=== PATIENT | male | born 1955 | race Caucasian/White ===

== ENCOUNTER → 2020-03-01 12:57 | Outpatient (CLI) | payer OTHER, SELFPAY ==
[2020-03-01 13:03] LABS: Microscopic, Urine URINE MICROSCOPIC (MICROSCOPIC)
[2020-03-01 13:37] LABS: Basophils % 0.3 % (0.1-2.0); Eosinophils # 0.2 K/mm3 (0.0-0.4); Hemoglobin 15.2 g/dL (14.1-18.0); Lymphocytes # 1.8 K/mm3 (0.7-4.5); Lymphocytes % 24.5 % (10-50); Mean Corpuscular HGB Conc 33.7 g/dL (31.8-35.4); Mean Corpuscular Hemoglobin 31.9 pg (27.0-31.2); Mean Corpuscular Volume 94.4 fl (80-94); Mean Platelet Volume 8.3 fl (7.4-10.4); Monocytes # 0.4 K/mm3 (0.1-1.0); Monocytes % 5.7 % (1.7-9.3); Neutrophils # 4.8 K/mm3 (1.8-7.8); Neutrophils % 66.5 % (37.0-80.0); Platelet Count 181 K/mm3 (142-424); Red Blood Count 4.76 M/mm3 (4.60-6.20); White Blood Count 7.3 K/mm3 (4.8-10.8)
[2020-03-01 13:43] LABS: Appearance,Urine CLEAR (Clear); Bilirubin,Urine Negative (Negative); Blood, Urine Negative (Negative); Color,Urine YELLOW (Yellow); Glucose,Urine (UA) Negative (Negative); Ketones,Urine Negative (Negative); Leukocyte Esterase,Urine Negative (Negative); Nitrate,Urine Negative (Negative); Protein,Urine Negative (Negative); Specific Gravity, Urine 1.015 (1.005-1.030); Urobilinogen,Urine 0.2 EU/dl (0.2)
[2020-03-01 13:58] LABS: Creatinine,Urine Random 81 mg/dL (Not Estab.)
[2020-03-01 14:34] LABS: Squamous Epithelial Cell,Urine Occasional #/hpf (0-5)
[2020-03-01 14:40] LABS: Albumin Level 3.9 g/dl (3.5-5.0); Anion Gap 13.5 mEq/L (5-15); Blood Urea Nitrogen 17 mg/dl (9-20); Calcium 9.1 mg/dl (8.4-10.2); Carbon Dioxide 26 mmol/L (22.0-30.0); Chloride 104 mmol/L (98-107); Estimated Glomerular Filt Rate 41 ml/min (>60); GFR (African American) 50 ML/MIN (>60); Glucose 105 mg/dl (74-100); Phosphorous 3.2 mg/dl (2.5-4.5); Potassium 4.5 mmoL/L (3.5-5.1); Sodium 139 mmol/L (136-145)
[2020-03-01 14:52] LABS: Intact Parathyroid Hormone 113.7 pg/mL (7.5-53.5)
[2020-03-01 14:57] LABS: 25-OH Vitamin D, Total 32.6 ng/mL (30-100)
== END ==
PROVIDERS: Visit Provider Internal Medicine Nephrology
DX: N18.3 Chronic kidney disease, stage 3 (moderate) (principal)
CPT/HCPCS: 36415; 80069; 81001; 82306; 82570; 83970; 84155; 85025

== ENCOUNTER → 2020-03-10 12:14 | Outpatient (POV) | payer OTHER, SELFPAY | PROVIDERS: Visit Provider Internal Medicine Nephrology | DX: Z00.00 Encounter for general adult medical examination without abnormal findings (principal) ==

== ENCOUNTER → 2020-03-14 07:35 | Outpatient (CLI) | payer OTHER, SELFPAY ==
[2020-03-14 15:00] LABS: Alanine Aminotransferase 31 U/L (12-78); Albumin Level 3.7 g/dl (3.5-5.0); Alkaline Phosphatase 94 U/L (38-126); Aspartate Amino Transferase 28 U/L (17-59); Bilirubin,Direct 0.1 mg/dl (0.0-0.4); Bilirubin,Indirect 0.4 mg/dL (0.0-0.9); Bilirubin,Total 0.5 mg/dl (0.2-1.3); Bilirubin,Unconjugated 0.4 mg/dL (0.0-1.1); Chol/HDL Ratio 3.1 (1-3.5); Cholesterol 107 mg/dl (140-200); HDL Cholesterol 35 mg/dl (40-60); Total Protein,Serum 6.1 g/dl (6.3-8.2); Triglycerides 86 mg/dl (30-150); VLDL Cholesterol 17 mg/dL (0-40)
[2020-03-14 15:10] LABS: NT Pro Brain Natriuretic Pep. 48.2 pg/mL (0-125)
[2020-03-14 15:11] LABS: Direct LDL Cholesterol 69.05 mg/dL (100-129)
[2020-03-14 15:31] LABS: Prostate Specific Ag Screen 1.4 ng/ml (0.0-4.0); Thyroid Stimulating Hormone 2.38 uIU/mL (0.465-4.68)
[2020-03-14 18:54] LABS: Creatinine,Urine Random 159 mg/dL (Not Estab.)
[2020-03-14 19:21] LABS: Microalbumin < 6.000 mg/L (0-16.7)
== END ==
PROVIDERS: Visit Provider Family Medicine
DX: R06.02 Shortness of breath (principal); I10 Essential (primary) hypertension; E78.2 Mixed hyperlipidemia; Z12.5 Encounter for screening for malignant neoplasm of prostate
CPT/HCPCS: 36415; 80061; 80076; 82043; 82570; 83880; 84443; G0103

== ENCOUNTER → 2020-03-30 09:40 | Outpatient (CLI) | payer OTHER, SELFPAY | PROVIDERS: PCP Family Medicine; Visit Provider Internal Medicine Nephrology | DX: N18.31 Chronic kidney disease, stage 3a (principal) ==

== ENCOUNTER → 2020-04-02 10:44 | Outpatient (CLI) | payer OTHER, SELFPAY ==
--- NOTE | 2020-04-02 10:49 | US_ITS ---
PROCEDURE: US KIDNEY CLINICAL INDICATION: CHRONIC KIDNEY DISEASE STAGE 3 COMPARISON: No exams were available for comparison FINDINGS: The right kidney is 10 x 5 x 5 cm. Left kidney is 11 x 5 x 6 cm. There is mild cortical thinning of the kidneys. No hydronephrosis evident. A 4 cm cyst is present along the superior pole of the right kidney. Mild splenomegaly at 14 cm. IMPRESSION: Mild bilateral renal cortical thinning with a 4 cm right renal cyst. Dictated by: Suman Rodriges MD 04/02/2020 18:12 Suman Rodriges MD in [place] 04/02/2020 18:12
== END ==
PROVIDERS: PCP Family Medicine; Visit Provider Internal Medicine Nephrology
DX: N18.30 Chronic kidney disease, stage 3 unspecified (principal)
CPT/HCPCS: 76770

== ENCOUNTER → 2020-04-04 17:01 | Outpatient (CLI) | payer OTHER, SELFPAY | PROVIDERS: PCP Family Medicine; Visit Provider Family Medicine | DX: G47.33 Obstructive sleep apnea (adult) (pediatric) (principal) | CPT/HCPCS: G0399 ==

== ENCOUNTER → 2020-11-18 10:13 | Outpatient (POV) | payer OTHER, SELFPAY | PROVIDERS: Visit Provider Dermatology | DX: Z00.00 Encounter for general adult medical examination without abnormal findings (principal) ==

== ENCOUNTER → 2021-02-28 09:06 | Outpatient (CLI) | payer OTHER, SELFPAY ==
[2021-02-28 09:37] LABS: Basophils % 0.4 % (0.1-2.0); Eosinophils # 0.2 K/mm3 (0.0-0.4); Eosinophils % 3.7 % (0.1-12.0); Hematocrit 48.5 % (42.0-52.0); Hemoglobin 15.9 g/dL (14.1-18.0); Lymphocytes % 33.5 % (10-50); Mean Corpuscular HGB Conc 32.8 g/dL (31.8-35.4); Mean Corpuscular Hemoglobin 31.6 pg (27.0-31.2); Mean Corpuscular Volume 96.3 fl (80-94); Mean Platelet Volume 7.9 fl (7.4-10.4); Monocytes # 0.5 K/mm3 (0.1-1.0); Monocytes % 9.1 % (1.7-9.3); Neutrophils # 3.2 K/mm3 (1.8-7.8); Neutrophils % 53.2 % (37.0-80.0); Platelet Count 185 K/mm3 (142-424); Red Blood Count 5.04 M/mm3 (4.60-6.20)
[2021-02-28 09:52] LABS: Hemoglobin A1C 5.8 % (4.0-6.0)
[2021-02-28 10:40] LABS: Alanine Aminotransferase 35 U/L (12-78); Albumin Level 3.9 g/dl (3.5-5.0); Albumin/Globulin Ratio 1.6 (1.1-1.8); Alkaline Phosphatase 88 U/L (38-126); Anion Gap 12.8 mEq/L (5-15); Aspartate Amino Transferase 35 U/L (17-59); Bilirubin,Total 0.5 mg/dl (0.2-1.3); Blood Urea Nitrogen 17 mg/dl (9-20); Calcium 9.1 mg/dl (8.4-10.2); Carbon Dioxide 28 mmol/L (22.0-30.0); Chloride 105 mmol/L (98-107); Chol/HDL Ratio 3.2 (1-3.5); Cholesterol 110 mg/dl (140-200); Estimated Glomerular Filt Rate 34 ml/min (>60); GFR (African American) 41 ML/MIN (>60); Globulin 2.4 g/dL (1.3-3.2); Glucose 94 mg/dl (74-100); HDL Cholesterol 34 mg/dl (40-60); Potassium 4.8 mmoL/L (3.5-5.1); Sodium 141 mmol/L (136-145); Total Protein,Serum 6.3 g/dl (6.3-8.2); Triglycerides 88 mg/dl (30-150); VLDL Cholesterol 18 mg/dL (0-40)
[2021-02-28 10:59] LABS: Creatinine,Urine Random 161 mg/dL (Not Estab.)
[2021-02-28 11:02] LABS: Microalbumin/Creatinine Ratio 8.1
[2021-02-28 11:11] LABS: Prostate Specific Ag Screen 1.8 ng/ml (0.0-4.0); Thyroid Stimulating Hormone 1.38 uIU/mL (0.465-4.68)
== END ==
PROVIDERS: Visit Provider Family Medicine
DX: I10 Essential (primary) hypertension (principal); E78.2 Mixed hyperlipidemia; R73.01 Impaired fasting glucose; N18.30 Chronic kidney disease, stage 3 unspecified; Z12.5 Encounter for screening for malignant neoplasm of prostate
CPT/HCPCS: 36415; 80053; 80061; 82043; 82570; 83036; 84443; 85025; G0103

== ENCOUNTER → 2021-03-28 07:55 | Outpatient (CLI) | payer OTHER, SELFPAY ==
[2021-03-28 08:39] LABS: Creatinine,Urine Random 64 mg/dL (Not Estab.)
[2021-03-28 09:10] LABS: Microalbumin/Creatinine Ratio 28.1
[2021-03-28 10:12] LABS: Blood Urea Nitrogen 16 mg/dl (9-20); Carbon Dioxide 28 mmol/L (22.0-30.0); Chloride 106 mmol/L (98-107); Estimated Glomerular Filt Rate 44 ml/min (>60); GFR (African American) 53 ML/MIN (>60); Phosphorous 2.9 mg/dl (2.5-4.5); Sodium 139 mmol/L (136-145)
[2021-03-28 10:39] LABS: Anion Gap 9.8 mEq/L (5-15); Potassium 4.8 mmoL/L (3.5-5.1)
[2021-03-28 10:42] LABS: Calcium 9.3 mg/dl (8.4-10.2); Glucose 94 mg/dl (74-100)
[2021-03-28 11:14] LABS: 25-OH Vitamin D, Total 32.9 ng/mL (30-100)
[2021-03-28 11:18] LABS: Intact Parathyroid Hormone 60.3 pg/mL (7.5-53.5)
[2021-03-30 15:22] LABS: Calcium, Ionized 5.2 mg/dL (4.5-5.6)
== END ==
PROVIDERS: Visit Provider Internal Medicine Nephrology
DX: N18.30 Chronic kidney disease, stage 3 unspecified (principal)
CPT/HCPCS: 36415; 80069; 82043; 82306; 82330; 82570; 83970

== ENCOUNTER → 2021-04-06 12:35 | Outpatient (POV) | payer OTHER, SELFPAY | PROVIDERS: Visit Provider Internal Medicine Nephrology | DX: Z00.00 Encounter for general adult medical examination without abnormal findings (principal) ==

== ENCOUNTER 2022-04-23 06:25 | Day surgery (SDC) | payer MEDICARE, OTHER, SELFPAY ==
[2022-04-20 17:28] VITALS: BMI 30.7
[2022-04-23] VITALS (8 sets, daily range): BP systolic 127–158; BP diastolic 71–94; PULSE 63–89; RESP 16–18; TEMP 36.1–36.4; O2SAT 91–97
--- NOTE | 2022-04-23 07:09 | P.PN_ITS ---
[facility] Medical History Family history of diabetes mellitus (DM) History of BPH History of chronic kidney disease History of gastroesophageal reflux (GERD) History of hyperlipidemia History of hypertension History of kidney stones Surgical History History of colonoscopy History of extraction of renal calculus History of hernia repair History of tonsillectomy Social History Smoking Status: Former smoker alcohol intake: never substance use type: denies use current occupational status: employed and retired Travel in the last 8 weeks: None household members: spouse housing: house [facility] Anesthesia Checklist Patient Identification Patient Identification: Arm Band and Verbal (Name & ) Structural Data Admitted From: Home Planned Operative Procedure/s: Colonoscopy Consent for Planned Operative Procedure(s) Verified: Yes NPO Status Verified Time NPO: 00:00 Airway Assessment C-Spine Mobility Assessed: Yes TMJ Mobility Assessed: Yes Dentition: Poor Dentition Neurological Assessment Level of Consciousness: Awake Hx Seizures: No Numbness or tingling in extremities: No Anesthesia Plan Anesthesia Risk discussed: Yes Anesthesia Plan: Verified ASA Class: III Anesthesia Type: MAC
--- NOTE | 2022-04-23 08:15 | P.PCN_ITS ---
Procedure: Date: 04/23/22 Patient Date of :: 1955 Procedure Performed:: Total colonoscopy to terminal ileum with polypectomy using biopsy forceps and snare Indications:: Patient is a 66-year-old male referred by Dr. Hernandez for colonoscopy due to history of polyps. He had a colonoscopy in [address] Joseph Bradley which revealed a single tubular adenoma. Dr. Galdamez performed colonoscopy 2016 which revealed a couple of tubular adenomas. He does have a vague family history of colon cancer he believes. Performing Provider:: Iftikhar Brock MD Referring Provider:: Prabhjot Hernandez MD Sedation:: MAC sedation Procedure:: Patient history was obtained and appropriate physical examination was performed. Patient's medications and allergies were reviewed. Informed consent was obtained after explaining the benefits, alternatives, and risks of the procedure including, but not limited to, bleeding, perforation, missed lesions, and adverse reaction to anesthesia medications. Patient was transported to endoscopy procedure room. Patient was connected to monitoring devices. Throughout the procedure the patient's blood pressure, pulse, and oxygen saturations were monitored continuously. Patient i dentification and planned procedure were verified by the staff. Patient was positioned in lateral decubitus position. Digital anorectal exam was performed. Variable stiffness Olympus colonoscope was inserted and advanced under direct visualization to the cecum. Adequacy of the colonic preparation was noted. The colonoscope was advanced a short distance into the terminal ileum. The colonoscope was then slowly withdrawn while carefully examining the color, texture, anatomy, and integrity of the mucosoa circumferentially. Within the rectum retroflexion was performed. Colonoscope was then withdrawn. Findings:: Patient had a good colonic preparation and good visualization was achieved with irrigation and suctioning. In the ascending colon there was a moderate approximately 8 mm adenomatous appearing polyp removed with cold snare. In the distal ascending colon just proximal to the hepatic flexure there was a small diminutive adenomatous appearing polyp removed with cold snare. In the sigmoid colon there was a possible early diminutive polyp as a subtle lesion removed with cold biopsy. Retroflexion within the rectum revealed a couple of anorectal lesions consistent with internal anal papillae which were removed with hot snare. IMPRESSION: Polyps as noted above Probable internal anal papillae removed with hot snare Recommendations:: Follow-up colonoscopy pending pathology. Likely 3 to 5 years Complications:: None immediately apparent Estimated blood obtained (mL): 1
== END 2022-04-23 09:05 | disposition home or self-care (01) ==
PROVIDERS: PCP Family Medicine; Visit Provider Surgery
PROC: 0DJD8ZZ Inspection of Lower Intestinal Tract, Via Natural or Artificial Opening Endoscopic (ICD-10-PCS; principal; 2022-04-23 07:30)
DX: Z12.11 Encounter for screening for malignant neoplasm of colon (principal); K63.5 Polyp of colon; Z86.010 Personal history of colon polyps; Z79.899 Other long term (current) drug therapy
CPT/HCPCS: 45380; 45385; 88305; J2704

== ENCOUNTER → 2022-05-05 08:15 | Outpatient (CLI) | payer MEDICARE, OTHER, SELFPAY ==
[2022-05-05 08:29] LABS: Microscopic, Urine URINE MICROSCOPIC (MICROSCOPIC)
[2022-05-05 09:04] LABS: Basophils # 0.1 K/mm3 (0-0.2); Basophils % 0.9 % (0.1-2.0); Eosinophils # 0.3 K/mm3 (0.0-0.4); Eosinophils % 4.2 % (0.1-12.0); Hematocrit 51.3 % (42.0-52.0); Hemoglobin 16.9 g/dL (14.1-18.0); Lymphocytes # 2.1 K/mm3 (0.7-4.5); Lymphocytes % 30.3 % (10-50); Mean Corpuscular Hemoglobin 31.1 pg (27.0-31.2); Mean Corpuscular Volume 94.2 fl (80-94); Mean Platelet Volume 8.2 fl (7.4-10.4); Monocytes # 0.5 K/mm3 (0.1-1.0); Monocytes % 6.9 % (1.7-9.3); Neutrophils % 57.6 % (37.0-80.0); Platelet Count 226 K/mm3 (142-424); Red Blood Count 5.44 M/mm3 (4.60-6.20); Red Cell Distribution Width 15.1 % (11.5-17.5)
[2022-05-05 09:05] LABS: Appearance,Urine CLEAR (Clear); Bilirubin,Urine Negative (Negative); Blood, Urine Negative (Negative); Color,Urine YELLOW (Yellow); Glucose,Urine (UA) 2+ (Negative); Ketones,Urine Negative (Negative); Leukocyte Esterase,Urine Negative (Negative); Nitrate,Urine Negative (Negative); Protein,Urine Negative (Negative); Specific Gravity, Urine 1.025 (1.005-1.030); Urobilinogen,Urine 0.2 EU/dl (0.2)
[2022-05-05 09:41] LABS: Creatinine,Urine Random 153 mg/dL (Not Estab.)
[2022-05-05 09:43] LABS: Anion Gap 15.7 mEq/L (5-15); Blood Urea Nitrogen 14 mg/dl (9-20); Calcium 9.4 mg/dl (8.4-10.2); Carbon Dioxide 27 mmol/L (22.0-30.0); Chloride 102 mmol/L (98-107); Estimated Glomerular Filt Rate 41 ml/min (>60); GFR (African American) 49 ML/MIN (>60); Glucose 93 mg/dl (74-100); Phosphorous 3.3 mg/dl (2.5-4.5); Potassium 4.7 mmoL/L (3.5-5.1); Sodium 140 mmol/L (136-145)
[2022-05-05 09:45] LABS: Microalbumin/Creatinine Ratio 9.7
[2022-05-05 09:58] LABS: 25-OH Vitamin D, Total 34.8 ng/mL (30-100)
== END ==
PROVIDERS: PCP Family Medicine; Visit Provider Internal Medicine Nephrology
DX: N18.32 Chronic kidney disease, stage 3b (principal); E55.9 Vitamin D deficiency, unspecified
CPT/HCPCS: 36415; 80069; 81001; 82043; 82306; 82570; 85025

== ENCOUNTER → 2022-05-10 09:47 | Outpatient (POV) | payer MEDICARE, OTHER, SELFPAY | PROVIDERS: Visit Provider Internal Medicine Nephrology | DX: Z00.00 Encounter for general adult medical examination without abnormal findings (principal) ==

== ENCOUNTER 2022-12-05 09:29 | Emergency (ER) | payer MEDICARE, OTHER, SELFPAY ==
[2022-12-05] VITALS (8 sets, daily range): BP systolic 129–146; BP diastolic 76–89; PULSE 65–81; RESP 18; TEMP 36.5–36.6; O2SAT 92–96; BMI 29.9
--- NOTE | 2022-12-05 09:35 | PC.NURSE ---
ED MD AT BEDSIDE
--- NOTE | 2022-12-05 09:38 | CT_ITS ---
PROCEDURE INFORMATION: Exam: CT Abdomen And Pelvis With Contrast Exam date and time: 12/05/2022 11:08 AM Age: 66 years old Clinical indication: Abdominal pain; Generalized; Additional info: Llq pain TECHNIQUE: Imaging protocol: Computed tomography of the abdomen and pelvis with contrast. Radiation optimization: All CT scans at this facility use at least one of these dose optimization techniques: automated exposure control; mA and/or kV adjustment per patient size (includes targeted exams where dose is matched to clinical indication); or iterative reconstruction. Contrast material: ISOVUE; Contrast volume: 75 ml; Contrast route: IV; REPORTING DATA: Count of CT and Cardiac NM exams in prior 12 months: This patient has received 0 known CTs and 0 known cardiac nuclear medicine studies in the 12 months prior to the current study. COMPARISON: US KIDNEY 04/02/2020 11:18 AM FINDINGS: Liver: Diffuse fatty liver infiltration. Gallbladder and bile ducts: Normal. No calcified stones. No ductal dilation. Pancreas: Normal. No ductal dilation. Spleen: Normal. No splenomegaly. Adrenal glands: Normal. No mass. Kidneys and ureters: 3.0 cm right renal cortical exophytic cyst. 0.3 cm left ureterovesicular junction calculus with proximal hydroureter. Tiny bilateral nonobstructive renal calculi. Stomach and bowel: Colonic diverticula without pericolonic fat stranding. Appendix: No evidence of appendicitis. Intraperitoneal space: Unremarkable. No free air. No significant fluid collection. Vasculature: Atherosclerotic calcification of aortoiliac arteries. Lymph nodes: Unremarkable. No enlarged lymph nodes. Urinary bladder: Unremarkable as visualized. Reproductive: Unremarkable as visualized. Bones/joints: Unremarkable. No acute fracture. Soft tissues: Unremarkable. IMPRESSION: 1. Left ureterovesicular junction calculus with proximal hydroureter. Nonobstructive renal calculi. 2. Mild hepatomegaly with fatty liver infiltration. 3. Colonic diverticulosis. COMMENTS: Consistent with the [employer]'s Incidental Findings Committee white paper (J Am No Radiol 2018): Any incidental renal lesion less than 1 cm or classified as too small to characterize, or any incidental cystic renal lesion characterized as simple-appearing, is likely benign. No follow-up imaging is recommended for these lesions per consensus recommendations based on imaging criteria.
--- NOTE | 2022-12-05 09:39 | HMH.EDGENADL ---
Discharge Plan Disposition Patient Disposition: Home, Self-Care Condition: Fair Prescriptions Prescriptions: New ibuprofen [IBU] 600 mg tablet 600 mg PO Q8H PRN (Reason: pain) Qty: 30 0RF ondansetron 4 mg tablet,disintegrating 4 mg PO Q6H PRN (Reason: nausea and vomiting) Qty: 10 0RF hydrocodone-acetaminophen 5-325 mg tablet 1 tab PO Q6H PRN (Reason: pain) Qty: 7 0RF No Action tamsulosin [Flomax] 0.4 mg capsule 0.4 mg PO DAILY sildenafil 100 mg tablet 100 mg PO DAILY PRN (Reason: Sexual Activity) Rx Instructions: administer 30 minutes to 4 hours before activity rosuvastatin 5 mg tablet 5 mg PO DAILY coenzyme Q10 [CoQ-10] 100 mg capsule 100 mg PO DAILY aspirin [Adult Low Dose Aspirin] 81 mg tablet,delayed release (DR/EC) 81 mg PO DAILY omeprazole 20 mg capsule,delayed release(DR/EC) 20 mg PO DAILY lisinopril 10 mg tablet 10 mg PO DAILY Qty: 0 metoprolol succinate 100 mg tablet extended release 24 hr 100 mg PO DAILY Referrals Follow up/Referrals: Prabhjot Hernandez MD [Primary Care Provider] - See instructions Activity Restrictions/Add. Instructions Additional Instructions/Restrictions: You have been evaluated for abdominal pain, diagnosed with a kidney stone on the left. Please monitor your symptoms closely. Take ibuprofen every 6 hours. Continue taking Flomax. Take Zofran as needed for nausea. [place] for severe pain. Follow-up with your primary care doctor in 1 to 2 days for symptom recheck. Follow-up with urology. Return to the emergency department at once for any new or worsening symptoms, uncontrolled pain, vomiting, fever, other concerns Clinical Impressions Clinical Impression: Kidney stone, Benign cyst of right kidney Instructions Patient Instructions: DI for Low Back Pain Discharge ED Provider: Kyra Mishra Adult HPI General Chief complaint: Back Pain/Injury Stated complaint: LEFT FLANK PAIN Time Seen by Provider: 12/05/22 09:34 Mode of Arrival: Ambulatory Source of Information: Patient Limitations: No Limitations History of Present Illness HPI narrative: 66-year-old male presenting to the emergency department with left-sided flank, abdominal pain. Symptoms started 2 days ago, got worse today. Today, the pain is described as sharp and intense. It is located on the left side of the flank, near the kidney area. Radiates slightly to the front. Was worse when he was trying to sit in the car on the way here. He denies fevers, chills, nausea, vomiting, constipation, diarrhea. No history of kidney stones. He did have a colonoscopy a few years ago that showed polyps and diverticulosis. He does not think he has ever been treated for diverticulitis. No falls or injury. No midline back pain, history of DJD or sciatica. Related Data Home Medications Medication Instructions Recorded Confirmed aspirin 81 mg tablet,delayed 81 mg PO DAILY CAD 04/13/18 05/04/22 release (Adult Low Dose Aspirin) coenzyme Q10 100 mg capsule 100 mg PO DAILY Supplement 04/13/18 05/04/22 (CoQ-10) omeprazole 20 mg capsule,delayed 20 mg PO DAILY GERD 04/13/18 05/04/22 release rosuvastatin 5 mg tablet 5 mg PO DAILY hld 04/13/18 05/04/22 tamsulosin 0.4 mg capsule (Flomax) 0.4 mg PO DAILY bph 05/18/18 05/04/22 lisinopril 10 mg tablet 10 mg PO DAILY htn #0 tabs 05/03/19 05/04/22 metoprolol succinate 100 mg 100 mg PO DAILY htn 04/16/20 05/04/22 tablet,extended release 24 hr sildenafil 100 mg tablet 100 mg PO DAILY PRN Sexual Activity 06/05/20 05/04/22 Previous Rx's Medication Instructions Recorded hydrocodone 5 mg-acetaminophen 325 1 tab PO Q6H PRN pain #7 tabs 12/05/22 mg tablet ibuprofen 600 mg tablet (IBU) 600 mg PO Q8H PRN pain #30 tabs 12/05/22 ondansetron 4 mg disintegrating 4 mg PO Q6H PRN nausea and 12/05/22 tablet vomiting #10 tabs Allergies Allergy/AdvReac Type Severity Reaction Status Date / Time No Known Allerg
[2022-12-05 09:41] LABS: Microscopic, Urine URINE MICROSCOPIC (MICROSCOPIC)
[2022-12-05 09:44] LABS: Appearance,Urine CLEAR (Clear); Bilirubin,Urine Negative (Negative); Blood, Urine 2+ (Negative); Color,Urine YELLOW (Yellow); Glucose,Urine (UA) 2+ (Negative); Ketones,Urine Negative (Negative); Leukocyte Esterase,Urine Negative (Negative); Nitrate,Urine Negative (Negative); PH,Urine 5.5 (5.0-8.5); Protein,Urine Negative (Negative); Specific Gravity, Urine 1.025 (1.005-1.030); Urobilinogen,Urine 0.2 EU/dl (0.2)
[2022-12-05 09:50] LABS: Basophils % 0.5 % (0.1-2.0); Eosinophils # 0.2 K/mm3 (0.0-0.4); Eosinophils % 2.6 % (0.1-12.0); Hematocrit 52.4 % (42.0-52.0); Hemoglobin 16.7 g/dL (14.1-18.0); Lymphocytes # 2.9 K/mm3 (0.7-4.5); Lymphocytes % 37.2 % (10-50); Mean Corpuscular HGB Conc 31.8 g/dL (31.8-35.4); Mean Corpuscular Hemoglobin 29.3 pg (27.0-31.2); Mean Platelet Volume 8.2 fl (7.4-10.4); Monocytes # 0.6 K/mm3 (0.1-1.0); Monocytes % 7.9 % (1.7-9.3); Neutrophils # 4.1 K/mm3 (1.8-7.8); Neutrophils % 51.8 % (37.0-80.0); Platelet Count 172 K/mm3 (142-424); Red Blood Count 5.69 M/mm3 (4.60-6.20); Red Cell Distribution Width 14.3 % (11.5-17.5); White Blood Count 7.8 K/mm3 (4.8-10.8)
[2022-12-05 09:54] LABS: Bacteria,Urine Trace /lpf; Squamous Epithelial Cell,Urine Occasional #/hpf (0-5); WBC,Urine Occasional #/hpf (0-3)
[2022-12-05 09:59] LABS: Alanine Aminotransferase 38 U/L (12-78); Albumin Level 4.1 g/dl (3.5-5.0); Albumin/Globulin Ratio 1.6 (1.1-1.8); Alkaline Phosphatase 92 U/L (38-126); Anion Gap 14.8 mEq/L (5-15); Aspartate Amino Transferase 33 U/L (17-59); Bilirubin,Total 0.4 mg/dl (0.2-1.3); Blood Urea Nitrogen 19 mg/dl (9-20); Calcium 8.7 mg/dl (8.4-10.2); Carbon Dioxide 26 mmol/L (22.0-30.0); Chloride 104 mmol/L (98-107); Estimated Glomerular Filt Rate 32 ml/min (>60); GFR (African American) 39 ML/MIN (>60); Globulin 2.5 g/dL (1.3-3.2); Glucose 111 mg/dl (74-100); Potassium 3.8 mmoL/L (3.5-5.1); Sodium 141 mmol/L (136-145); Total Protein,Serum 6.6 g/dl (6.3-8.2)
--- NOTE | 2022-12-05 10:23 | PC.NURSE ---
IVF infusing per MAR, pt reports pain has improved but still present. Stated to pt will notify ER MD. at BS, call espinal in reach. Notified ER MD pt continues to have pt, tordal helped some but pain still present
--- NOTE | 2022-12-05 10:32 | PC.NURSE ---
rad staff wanting to know if ER MD wants pt to have IV contrast r/t GFR 32. Asked ER MD- states yes does want contrast r/t needing to be view aorta well. States will hydrate pt prior to CT, pt has IVF infusing at this time. Notified radiology of ER MD does want pt to have IV contrast, IVF infusing at this time, states she will come get pt for ct after IVF infusing
--- NOTE | 2022-12-05 10:33 | HMH.ITSTN ---
pt has GFR of 32. I advised Nurse and Dr Mishra and she does want the scan with contrast. bolus of fluids given prior to scan
--- NOTE | 2022-12-05 10:40 | PC.NURSE ---
OFFERED PT PAIN MEDICATION PER MD ORDERS, REPORTS FEELING BETTER AT THIS TIME. WILL DECLINE PAIN MEDICATION AT THIS TIME
--- NOTE | 2022-12-05 11:07 | PC.NURSE ---
rounded on patient, family at bedside, patient waiting to go to CT
--- NOTE | 2022-12-05 11:13 | PC.NURSE ---
PT RETURNED FROM CT
--- NOTE | 2022-12-05 11:13 | PC.NURSE ---
pt return from CT
--- NOTE | 2022-12-05 12:18 | PC.NURSE ---
ROUNDED ON PT AT THIS TIME, COMFORTABLE AT THIS TIME
--- NOTE | 2022-12-05 12:19 | PC.NURSE ---
contacted rad to check on status of ct results-waiting associate professor of communication back
--- NOTE | 2022-12-05 12:38 | PC.NURSE ---
Dr Mishra at bedside
--- NOTE | 2022-12-05 12:38 | PC.NURSE ---
ED MD AT BEDSIDE TO UPDATE PT AND FAMILY
== END 2022-12-05 12:50 | disposition home or self-care (01) ==
PROVIDERS: Emergency Provider Emergency Medicine; PCP Family Medicine
DX: N20.0 Calculus of kidney (principal); N28.1 Cyst of kidney, acquired; I12.9 Hypertensive chronic kidney disease with stage 1 through stage 4 chronic kidney disease, or unspecified chronic kidney disease; N18.9 Chronic kidney disease, unspecified; Z87.891 Personal history of nicotine dependence
CPT/HCPCS: 74177; 80053; 81001; 85025; 96374; 96375; 96376; 99285; J2405; Q9967

== ENCOUNTER 2023-03-16 19:20 | Emergency (ER) | payer MEDICARE, OTHER, SELFPAY ==
[2023-03-16 19:21] VITALS: BP 141/82; PULSE 76; RESP 16; TEMP 36.7; O2SAT 96; BMI 30.2
--- NOTE | 2023-03-16 19:33 | XR_ITS ---
PROCEDURE INFORMATION: Exam: XR Left Hand Exam date and time: 03/16/2023 7:30 PM Age: 67 years old Clinical indication: Injury or trauma; Laceration; Hand; Left; Additional info: Left dorsal index trauma pip TECHNIQUE: Imaging protocol: Radiologic exam of the left hand. Views: 3 or more views. COMPARISON: No relevant prior studies available. FINDINGS: Bones/joints: Moderate osteophytosis and degenerative changes involve the 1st carpal metacarpal joint, along with thumb index finger and middle finger MCP joints. Soft tissues: No radiopaque foreign bodies identified at the soft tissues of the index finger soft tissues. IMPRESSION: No radiopaque foreign bodies identified at the soft tissues of the index finger soft tissues.
--- NOTE | 2023-03-16 19:39 | HMH.EDGENADL ---
Discharge Plan Disposition Patient Disposition: Home, Self-Care Prescriptions Prescriptions: No Action tamsulosin [Flomax] 0.4 mg capsule 0.4 mg PO DAILY sildenafil 100 mg tablet 100 mg PO DAILY PRN (Reason: Sexual Activity) Rx Instructions: administer 30 minutes to 4 hours before activity rosuvastatin 5 mg tablet 5 mg PO DAILY coenzyme Q10 [CoQ-10] 100 mg capsule 100 mg PO DAILY aspirin [Adult Low Dose Aspirin] 81 mg tablet,delayed release (DR/EC) 81 mg PO DAILY omeprazole 20 mg capsule,delayed release(DR/EC) 20 mg PO DAILY lisinopril 10 mg tablet 10 mg PO DAILY Qty: 0 metoprolol succinate 100 mg tablet extended release 24 hr 100 mg PO DAILY ibuprofen [IBU] 600 mg tablet 600 mg PO Q8H PRN (Reason: pain) Qty: 30 0RF ondansetron 4 mg tablet,disintegrating 4 mg PO Q6H PRN (Reason: nausea and vomiting) Qty: 10 0RF hydrocodone-acetaminophen 5-325 mg tablet 1 tab PO Q6H PRN (Reason: pain) Qty: 7 0RF Referrals Follow up/Referrals: Prabhjot Hernandez MD [Primary Care Provider] - See instructions Activity Restrictions/Add. Instructions Additional Instructions/Restrictions: Please follow-up with your family doctor within 10 to 14 days for possible suture removal. If signs of infection such as redness, swelling, pus please do not hesitate to return the emergency department. Clinical Impressions Clinical Impression: Finger laceration Instructions Patient Instructions: DI for Laceration Repair Discharge ED Provider: Toi Palma General Adult HPI General Chief complaint: Wound/Laceration Stated complaint: [id number]/@1900 lac to LT index finger Time Seen by Provider: 03/16/23 19:30 Mode of Arrival: Family Vehicle Source of Information: Patient Limitations: No Limitations Description of Symptoms (Recalled from ER Triage Doc. by RN): pt reports he was working with a saw and cut left pointer finger, bleeding controlled History of Present Illness HPI narrative: Patient is a 67-year-old male with no pertinent past medical history presents emergency department for evaluation of trauma. Patient was ankle grinding a piece of wood when he suffered a laceration over the dorsal aspect of his index finger. No other acute complaints at this time. Related Data Home Medications Medication Instructions Recorded Confirmed aspirin 81 mg tablet,delayed 81 mg PO DAILY CAD 04/13/18 05/04/22 release (Adult Low Dose Aspirin) coenzyme Q10 100 mg capsule 100 mg PO DAILY Supplement 04/13/18 05/04/22 (CoQ-10) omeprazole 20 mg capsule,delayed 20 mg PO DAILY GERD 04/13/18 05/04/22 release rosuvastatin 5 mg tablet 5 mg PO DAILY hld 04/13/18 05/04/22 tamsulosin 0.4 mg capsule (Flomax) 0.4 mg PO DAILY bph 05/18/18 05/04/22 lisinopril 10 mg tablet 10 mg PO DAILY htn #0 tabs 05/03/19 05/04/22 metoprolol succinate 100 mg 100 mg PO DAILY htn 04/16/20 05/04/22 tablet,extended release 24 hr sildenafil 100 mg tablet 100 mg PO DAILY PRN Sexual Activity 06/05/20 05/04/22 Previous Rx's Medication Instructions Recorded hydrocodone 5 mg-acetaminophen 325 1 tab PO Q6H PRN pain #7 tabs 12/05/22 mg tablet ibuprofen 600 mg tablet (IBU) 600 mg PO Q8H PRN pain #30 tabs 12/05/22 ondansetron 4 mg disintegrating 4 mg PO Q6H PRN nausea and 12/05/22 tablet vomiting #10 tabs Allergies Allergy/AdvReac Type Severity Reaction Status Date / Time No Known Allergies Allergy Verified 05/04/22 13:31 [facility] Disclaimer: The information contained in this section may have been updated after the patient was seen, as this information can be updated by other users. Medical History History of BPH History of chronic kidney disease History of gastroesophageal reflux (GERD) History of hyperlipidemia History of hypertension History of kidney stones Stroke Surgical History (Reviewed 05/04/22 @ 13:31 by Miranda Guadalupe
--- NOTE | 2023-03-16 20:22 | PC.NURSE ---
Cleaned wound and applied bacitracin ointment, a bandage and a finger splint per Dr Palma. Pt given instructions on care. CR
[2023-03-16 21:05] VITALS: BP 126/73; PULSE 78; RESP 16; TEMP 36.6; O2SAT 96
== END 2023-03-16 21:06 | disposition home or self-care (01) ==
PROVIDERS: Emergency Provider Emergency Medicine; PCP Family Medicine
DX: S61.211A Laceration without foreign body of left index finger without damage to nail, initial encounter (principal); I12.9 Hypertensive chronic kidney disease with stage 1 through stage 4 chronic kidney disease, or unspecified chronic kidney disease; N18.9 Chronic kidney disease, unspecified; E78.5 Hyperlipidemia, unspecified; Z23 Encounter for immunization; W31.2XXA Contact with powered woodworking and forming machines, initial encounter
CPT/HCPCS: 12001; 73130; 90715; 96372; 99283

== ENCOUNTER → 2023-05-16 08:15 | Outpatient (CLI) | payer MEDICARE, OTHER, SELFPAY ==
[2023-05-16 09:03] LABS: Basophils % 0.5 % (0.1-2.0); Eosinophils # 0.2 K/mm3 (0.0-0.4); Eosinophils % 3.1 % (0.1-12.0); Hematocrit 52.3 % (42.0-52.0); Hemoglobin 17.7 g/dL (14.1-18.0); Lymphocytes # 2.3 K/mm3 (0.7-4.5); Lymphocytes % 32.2 % (10-50); Mean Corpuscular HGB Conc 33.7 g/dL (31.8-35.4); Mean Corpuscular Hemoglobin 31.3 pg (27.0-31.2); Mean Corpuscular Volume 92.8 fl (80-94); Mean Platelet Volume 8.6 fl (7.4-10.4); Monocytes # 0.5 K/mm3 (0.1-1.0); Monocytes % 6.5 % (1.7-9.3); Neutrophils # 4.2 K/mm3 (1.8-7.8); Neutrophils % 57.6 % (37.0-80.0); Platelet Count 170 K/mm3 (142-424); Red Blood Count 5.64 M/mm3 (4.60-6.20); Red Cell Distribution Width 13.8 % (11.5-17.5); White Blood Count 7.2 K/mm3 (4.8-10.8)
[2023-05-16 09:49] LABS: Creatinine,Urine Random 123 mg/dL (Not Estab.)
[2023-05-16 09:52] LABS: Microalbumin/Creatinine Ratio 10.4
[2023-05-16 09:53] LABS: Albumin Level 4.2 g/dl (3.5-5.0); Anion Gap 10.7 mEq/L (5-15); Blood Urea Nitrogen 19 mg/dl (9-20); Calcium 8.8 mg/dl (8.4-10.2); Carbon Dioxide 24 mmol/L (22.0-30.0); Chloride 105 mmol/L (98-107); Estimated Glomerular Filt Rate 32 ml/min (>60); GFR (African American) 38 ML/MIN (>60); Glucose 96 mg/dl (74-100); Phosphorous 3.3 mg/dl (2.5-4.5); Potassium 4.7 mmoL/L (3.5-5.1); Sodium 135 mmol/L (136-145)
== END ==
PROVIDERS: PCP Family Medicine; Visit Provider Internal Medicine Nephrology
DX: N18.30 Chronic kidney disease, stage 3 unspecified (principal)
CPT/HCPCS: 80069; 82043; 82570; 85025

== ENCOUNTER 2023-12-01 08:11 | Outpatient (CLI) | payer MEDICARE, OTHER, SELFPAY ==
[2023-12-01 09:37] LABS: Albumin Level 4.1 g/dl (3.5-5.0); Anion Gap 14.7 mEq/L (5-15); Blood Urea Nitrogen 21 mg/dl (9-20); Calcium 9.2 mg/dl (8.4-10.2); Carbon Dioxide 22 mmol/L (22.0-30.0); Chloride 108 mmol/L (98-107); Estimated Glomerular Filt Rate 30 ml/min (>60); GFR (African American) 36 ML/MIN (>60); Glucose 98 mg/dl (74-100); Phosphorous 3.4 mg/dl (2.5-4.5); Potassium 4.7 mmoL/L (3.5-5.1); Sodium 140 mmol/L (136-145)
[2023-12-01 09:48] LABS: Intact Parathyroid Hormone 67.3 pg/mL (7.5-53.5)
[2023-12-02 11:00] LABS: 25-OH Vitamin D, Total 48.7 ng/mL (30-100)
== END 2023-12-01 23:59 | disposition home or self-care (01) ==
LOC: LAB 08:13
PROVIDERS: PCP Family Medicine; Visit Provider Nurse Practitioner
DX: N18.32 Chronic kidney disease, stage 3b (principal)
CPT/HCPCS: 36415; 80069; 82306; 82652; 83970

== ENCOUNTER 2023-12-02 11:23 | Outpatient (CLI) | payer MEDICARE, OTHER, SELFPAY ==
[2023-12-02 11:37] LABS: Microscopic, Urine URINE MICROSCOPIC (MICROSCOPIC)
[2023-12-02 12:58] LABS: Appearance,Urine CLEAR (Clear); Bilirubin,Urine Negative (Negative); Blood, Urine Negative (Negative); Color,Urine YELLOW (Yellow); Glucose,Urine (UA) 3+ (Negative); Ketones,Urine Negative (Negative); Leukocyte Esterase,Urine Negative (Negative); Nitrate,Urine Negative (Negative); Protein,Urine Negative (Negative); Urobilinogen,Urine 0.2 EU/dl (0.2)
[2023-12-02 13:36] LABS: RBC,Urine Occasional #/hpf (0-3); Squamous Epithelial Cell,Urine Occasional #/hpf (0-5)
[2023-12-02 13:45] LABS: Creatinine,Urine Random 119 mg/dL (Not Estab.)
== END 2023-12-02 23:59 | disposition home or self-care (01) ==
LOC: LAB 11:27
PROVIDERS: PCP Neurological Surgery; Visit Provider Nurse Practitioner
DX: N18.32 Chronic kidney disease, stage 3b (principal)
CPT/HCPCS: 81001; 82570; 84156

== ENCOUNTER 2023-12-05 12:52 | Outpatient (POV) | payer MEDICARE, OTHER, SELFPAY | END 2023-12-05 23:59 | disposition home or self-care (01) | LOC: SC 12:52 | PROVIDERS: Visit Provider Nurse Practitioner | DX: Z00.00 Encounter for general adult medical examination without abnormal findings (principal) ==

== ENCOUNTER 2023-12-09 15:44 | Outpatient (CLI) | payer MEDICARE, OTHER, SELFPAY ==
--- NOTE | 2023-12-09 15:52 | XR_ITS ---
FINAL REPORT CLINICAL HISTORY: RLQ ABD PAIN, CONSTIPATION FINDINGS: TWO-VIEW ABDOMEN There is a normal bowel gas pattern. No bowel dilation is identified. There is no significant fecal impaction. Right pelvic calcifications are compatible with phleboliths. There is no free air. IMPRESSION: No acute process. Reviewed, Interpreted and Dictated by Curry Wiley MD Transcribed by Daksha Hendrix Authenticated and [facility]
== END 2023-12-09 23:59 | disposition home or self-care (01) ==
LOC: RAD 15:47
PROVIDERS: PCP Family Medicine; Visit Provider Family Medicine
DX: R10.31 Right lower quadrant pain (principal); K59.00 Constipation, unspecified
CPT/HCPCS: 74019

== ENCOUNTER 2024-05-28 08:18 | Outpatient (CLI) | payer MEDICARE, OTHER, SELFPAY ==
[2024-05-28 08:25] LABS: Microscopic, Urine URINE MICROSCOPIC (MICROSCOPIC)
[2024-05-28 08:44] LABS: Hematocrit 49.5 % (42.0-52.0); Hemoglobin 16.5 g/dL (14.1-18.0); Mean Corpuscular HGB Conc 33.3 g/dL (31.8-35.4); Mean Corpuscular Hemoglobin 31.2 pg (27.0-31.2); Mean Corpuscular Volume 93.8 fl (80-94); Platelet Count 160 K/mm3 (142-424); Red Blood Count 5.27 M/mm3 (4.60-6.20); Red Cell Distribution Width 14.8 % (11.5-17.5); White Blood Count 6.3 K/mm3 (4.8-10.8)
[2024-05-28 08:45] LABS: Appearance,Urine CLEAR (Clear); Bilirubin,Urine Negative (Negative); Blood, Urine Negative (Negative); Color,Urine YELLOW (Yellow); Glucose,Urine (UA) 2+ (Negative); Ketones,Urine Negative (Negative); Leukocyte Esterase,Urine Negative (Negative); Nitrate,Urine Negative (Negative); Protein,Urine Negative (Negative); Specific Gravity, Urine 1.025 (1.005-1.030); Urobilinogen,Urine 0.2 EU/dl (0.2)
[2024-05-28 08:55] LABS: Creatinine,Urine Random 116 mg/dL (Not Estab.)
[2024-05-28 08:58] LABS: Microalbumin/Creatinine Ratio 10.4
[2024-05-28 09:04] LABS: Albumin Level 3.9 g/dl (3.5-5.0); Chloride 109 mmol/L (98-107); Sodium 139 mmol/L (136-145)
[2024-05-28 09:05] LABS: Potassium 4.7 mmoL/L (3.5-5.1)
[2024-05-28 09:07] LABS: Blood Urea Nitrogen 19 mg/dl (9-20)
[2024-05-28 09:08] LABS: Anion Gap 9.7 mEq/L (5-15); Calcium 8.9 mg/dl (8.4-10.2); Carbon Dioxide 25 mmol/L (22.0-30.0); Estimated Glomerular Filt Rate 30 ml/min (>60); GFR (African American) 36 ML/MIN (>60); Glucose 97 mg/dl (74-100); Phosphorous 3.6 mg/dl (2.5-4.5)
[2024-05-28 20:58] LABS: Bacteria,Urine Trace /lpf; Squamous Epithelial Cell,Urine Occasional #/hpf (0-5)
== END 2024-05-28 23:59 | disposition home or self-care (01) ==
LOC: LAB 08:21
PROVIDERS: PCP Family Medicine; Visit Provider Nurse Practitioner
DX: N18.32 Chronic kidney disease, stage 3b (principal)
CPT/HCPCS: 36415; 80069; 81001; 82043; 82570; 84156; 85027

== ENCOUNTER 2024-12-10 08:35 | Outpatient (CLI) | payer MEDICARE, OTHER, SELFPAY ==
--- OUTSIDE RECORDS SUMMARY | 2024-04-09 10:00 | XMS_ITS ---
Author Organization [facility] Address [address] [place] [id number] Care Team Providers Care Machinery Engineer Name Role Phone Prabhjot Hernandez Primary Care Provider [phone] Allergies No Known Allergies Results Component Value Reference Range Notes Influenza Screen (in house) Reviewed date:04/10/2024 11:02:04 AM Interpretation: Performing Lab: Notes/Report: results Neg CBC Fingerstick (in house) Reviewed date:04/10/2024 11:02:11 AM Interpretation: Performing Lab: Notes/Report: wbc 8.0 3.5 - 10 lym 18.7% 15 - 50 mid 5.0% 2 - 15 gran 76.3% 35 - 80 rbc 5.22 3.5 - 5.5 hgb 15.7 11.5 - 16.5 hct 48.2 35 - 55 mcv 92.4 75 - 100 mch 30.0 25 - 35 mchc 32.5 31 - 38 plat 129 100 - 400 Covid test (in house) Reviewed date:04/10/2024 11:01:57 AM Interpretation: Performing Lab: Notes/Report: Result: Neg REASON FOR VISIT cough ,congestion Medications Medication SIG (Take, Route, Frequency, Duration) Notes Start Date End Date Status Sertraline HCl 50 MG 2 tablet Orally Onc e a day 02/29/2024 Active Lisinopril 10 MG 1 tab(s) orally once a day Active Rosuvastatin Calcium 5 MG TAKE 1 TABLET BY MOUTH EVERY DAY AT BEDTIME Active Omeprazole 20 MG TAKE 1 CAPSULE BY MO UTH EVERY DAY Active Tamsulosin HCl 0.4 MG TAKE 1 CAPSULE BY MOUTH DAILY for 90 Active Metamucil 4 in 1 Fiber 43 % as directed Orally once daily 12/09/2023 Active MiraLax 17 GM/SCOOP 1 scoop mixed with 8 ounces of fluid Orally Once a day 12/09/2023 Active CareTouch CPAP & BIPAP Hose 1 DIRECTED Active Metoprolol Succinate ER 100 MG 1 tab(s) orally once a day for 90 days Active Farxiga 10 MG 1 tablet Orally Once a day for 90 days Active Aspir-Low 81 MG 1 tab(s) orally once a day Active CoQ10 100 MG 1 cap(s) orally once a day Active Zithromax Z-Onel 250 MG as directed Orall y once daily for 5 day(s) 04/09/2024 Active Vital Signs Blood pressure systolic 122 mm Hg 04/09/20 24 Blood pressure diastolic 70 mm Hg 024 Heart Rate 64 /min 04/09/2024 Height 72 in 04/09/2024 Weight 214.8 lbs 04/09/2024 BMI 29.13 kg/m2 04/09/2024 Encounters Encounter Location Date Provider Diagnosis [facility] [address] [facility] [address] [place] [phone] 04/09/2024 Prabhjot Hernandez Acute URI J06.9 Assessments Encounter Date Diagnosis (ICD Code) Assessment Notes Treatment Notes Treatment Clinical Notes Section Notes 04/09/2024 Acute URI (ICD-10 - J06.9) Plan Of Treatment Medication Medication Name Sig Start Date Stop Date Notes Zithromax Z-Onel 250 MG as directed Orall y once daily for 5 day(s) 04/09/2024 Next Appt Details Follow Up: prn, Reason: Provider Name:Prabhjot Jacobson ry, 03/08/2025 09:00:00 AM, [address], [address], [place], [phone], Progress Notes * CYNDY FOREMANDOB:1955 (68 yo M)Acc No.[id number]:04/09/2024 Progress Notes Patient: CYNDY MONROE Provider: Lisseth Hernandez M.D. :1955 A ge:68 Y S ex:Male Date:04/09/2024 Address:[address] [place] [address] [id number] Subjective: * Chief Complaints: * 1 . Cough ,congestion. * HPI: E NT/respiratory: 68 year old male presents with c/o cough P t complains of small amount of sputum cough since Tuesday. Associated with wheezing, fever and bodyaches. * ROS: D ERMATOLOGY: no R ramirez. n o H geoff. G ASTROENTEROLOGY: no N ausea. n o V omiting. U ROLOGY: no D ifficulty urinating. n o B lood in urine. * Medical History: H ypertension, CVA, ischemic, brainstem, 2013, treated at [facility], Allergic Rhinitis, Diverticulosis, Prostatitis, Kidney Stones, Colon Polyps, Scope 2009, Impaired Fasting Glucose, Esophageal Reflux, Glaucoma, s/p laser periph. iridotomy 2017, BPH, s/p Urology evaluation in 2017, Renal Insufficiency, Chronic kidney disease, s/p Nephrology evaluation in 2019, Mild Sleep Apnea - Cpap at night. * Surgical History: T onsillectomy , Kidney Stones 2003, Umbilical Hernia Repair 2011, Colonoscopy 2016, 2021 , Right Eye Cataract Surgery 10/2023. * Hospitalization/Major Diagno stic Procedure: K idney Stones 2003, Stroke- 04/15-. * Family History: F ather: . M other: , diagnosed with Mental Illness. P aternal Grand Father: , diagnosed with Heart Disease. P aternal Grand Mother: . M aternal Grand Father: , diagnosed with Diabetes. M aternal Grand Mother: . 1 brother(s) , 1 sister(s) - healthy. 1 daughter(s) - healthy. . * Social History: C URRENT TOBACCO USE S moking Status: P attatyana does NOT smoke. C affeine: yes, frequency: tea, soft drinks. Home smoke detector use: yes. Marital Status: . Alcohol: No. * Medications: T aking Aspir-Low 81 MG Tablet Delayed Release 1 tab(s) orally once a day , Taking CoQ10 100 MG Capsule 1 cap(s) orally once a day , Taking CareTouch CPAP & BIPAP Hose MACHINE AND SUPPLIES 1 DIRECTED , Taking Metoprolol Succinate ER 100 MG Tablet Extended Release 24 Hour 1 tab(s) orally once a day , Taking Metamucil 4 in 1 Fiber 43 % Powder as directed Orally once daily , Taking MiraLax 17 GM/SCOOP Powder 1 scoop mixed with 8 ounces of fluid Orally Once a day , Taking Farxiga 10 MG Tablet 1 tablet Orally Once a day , Taking Lisinopril 10 MG Tablet 1 tab(s) orally once a day , Taking Rosuvastatin Calcium 5 MG Tablet TAKE 1 TABLET BY MOUTH EVERY DAY AT BEDTIME , Taking Omeprazole 20 MG Capsule Delayed Release TAKE 1 CAPSULE BY MOUTH EVERY DAY , Taking Tamsulosin HCl 0.4 MG Capsule TAKE 1 CAPSULE BY MOUTH DAILY , Taking Sertraline HCl 50 MG Tablet 2 tablet Orally Once a day , Medication List reviewed and reconciled with the patient * Allergies: N .K.D.A. Objective: * Vitals: W t:214.8, Temp:98.9, BP:122/70, HR:64, O2 Sat:98% on RA, Nurse:radha, Ht: 72, BMI:29.13. * Examination: E NT/Respiratory: General Appearance: N AD. Eyes: P ERRLA, sclera clear. Ears: auditory canals normal bilaterally, tympanic membranes normal bilaterally. Oral cavity : erythema without exudate on pharynx. Neck : n o cervical lymphadenopathy. Heart : R RR, normal S1 S2. Lungs: c lear to auscultation bilaterally. Assessment: * Assessment: 1. Geovanna rosenberg URI - J06.9 (Primary) Plan: * Treatment: Value Reference Range r esults Neg * Lisandra Velasco 04/09/2024 2:10:2 3 PM > , Provider reviewed results while patient in office. ?LAB: CBC Fingerstick (in house) (Collection Date & Time - 04/09/2024)* Value Reference Range w bc 8.0 3.5 - 10 * l ym 18.7% 15 - 50 * m id 5.0% 2 - 15 * g ran 76.3% 35 - 80 * r bc 5.22 3.5 - 5.5 * h gb 15.7 11.5 - 16.5 * h ct 48.2 35 - 55 * m cv 92.4 75 - 100 * m ch 30.0 25 - 35 * m chc 32.5 31 - 38 * p lat 129 100 - 400 * Lisandra Velasco 04/09/2024 2:08:1 9 PM > , Provider reviewed results while patient in office. ?LAB: Covid test (in house) (Collection Date & Time - 04/09/2024)* Value Reference Range R esult: Neg * Lisandra Velasco 04/09/2024 2:10:4 7 PM > , Provider reviewed results while patient in office. * Procedure Codes: G 2211 Complex e/[place], [address] [place], [address] Flu Test- Nasal Swab, Modifiers: QW , 29554 COVID TEST IN HOUSE, Modifiers: QW , 50088 CAPILLARY BLOOD DRAW, 13053 CBC WITH AUTO DIFF * Follow Up: p rn * Billing Information: * Visit Code: 37852 Office Visit, Est Pt., Level 3. * Procedure Codes: G2211 Complex e/[place]. [address] [place]. [address] Flu Test- Nasal Swab. Modifiers: QW 61866 COVID TEST IN HOUSE. Modifiers: QW 67233 CAPILLARY BLOOD DRAW. 49814 CBC WITH AUTO DIFF. * Electronic signature of Melly Hernandez MD on 12/10/2024 at 08:41 AM EDT Sign off status: Pending * Provider: Lisseth Hernandez M.D. Date: 1 Generated for Robin yuen/Mckenzie/eTransmitting on: 0 12/10/2024 08:41 AM EDT History and Physical Notes * HPI (History of Present Illness) Category Sub-Category Detail Notes Category Not es ENT/respiratory cough Pt complains of small amount of sputum cough since Tuesday. Associated with wheezing, fever and bodyaches Examination Category Sub-Category Detail Notes Category Not es ENT/Respiratory Oral cavity : erythema without exudate on pharynx Ears: auditory canals norm al bilaterally, tympanic membranes normal bilaterally Neck : no cervical lymphade nopathy Heart : RRR, normal S1 S2 Lungs: clear to auscultatio n bilaterally General Appearance: NAD Eyes: PERRLA, sclera clear
--- OUTSIDE RECORDS SUMMARY | 2024-08-06 06:30 | XMS_ITS ---
Author Organization [facility] Address [address] [place] [id number] Care Team Providers Care Plastic Worker Name Role Phone Prabhjot Hernandez Primary Care Provider Allergies No Known Allergies Results Component Value Reference Range Notes CBC Fingerstick (in house) Reviewed date:08/06/2024 05:23:42 PM Interpretation: Performing Lab: Notes/Report: wbc 7.6 3.5 - 10 lym 24.0% 15 - 50 mid 6.7% 2 - 15 gran 69.3% 35 - 80 rbc 5.56 3.5 - 5.5 hgb 17.1 11.5 - 16.5 hct 51.9 35 - 55 mcv 93.3 75 - 100 mch 30.7 25 - 35 mchc 32.9 31 - 38 plat 125 100 - 400 REASON FOR VISIT abdominal pain Medications Medication SIG (Take, Route, Frequency, Duration) Notes Start Date End Date Status Sertraline HCl 100 MG 1 tablet Orally On ce a day for 90 days 04/20/2024 Active Tamsulosin HCl 0.4 MG TAKE 1 CAPSULE BY MOUTH DAILY for 90 Active Rosuvastatin Calcium 5 MG 1 tablet Orall y Once a day for 90 days Active Lisinopril 10 MG 1 tab(s) orally once a day for 90 days Active Omeprazole 20 MG TAKE 1 CAPSULE BY MO [facility] EVERY DAY Active MiraLax 17 GM/SCOOP 1 scoop mixed with 8 ounces of fluid Orally Once a day 12/09/2023 Active Farxiga 10 MG 1 tablet Orally Once a day for 90 days Active Metoprolol Succinate ER 100 MG 1 tab(s) orally once a day for 90 days Active Metamucil 4 in 1 Fiber 43 % as directed Orally once daily 12/09/2023 Active Bactrim DS 800-160 MG 1 tablet Orally Tw o times a day for 5 day(s) 08/06/2024 Active CareTouch CPAP & BIPAP Hose 1 DIRECTED Active Aspir-Low 81 MG 1 tab(s) orally once a day Active CoQ10 100 MG 1 cap(s) orally once a day Active Vital Signs Blood pressure systolic 112 mm Hg 08/06/19 25 Blood pressure diastolic 64 mm Hg 025 Heart Rate 71 /min 08/06/2024 Height 72 in 08/06/2024 Weight 222 lbs 08/06/2024 BMI 30.11 kg/m2 08/06/2024 Encounters Encounter Location Date Provider Diagnosis [facility] [address] [facility] [address] [facility] [address] [place], [place] [id number] 08/06/2024 Prabhjot Hernandez LLQ abdominal pain R10.32 Assessments Encounter Date Diagnosis (ICD Code) Assessment Notes Treatment Notes Treatment Clinical Notes Section Notes 08/06/2024 LLQ abdominal pain (ICD-10 - R10.32) Plan Of Treatment Medication Medication Name Sig Start Date Stop Date Notes Bactrim DS 800-160 MG 1 tablet Orally Tw o times a day for 5 day(s) 08/06/2024 Next Appt Details Follow Up: prn, Reason: Provider Name:Prabhjot Jacobson ry, 03/08/2025 09:00:00 AM, [address] [facility] [address] [facility], [address], [place], [place], [phone], Progress Notes * CYNDY FOREMANDOB:1955 (68 yo M)Acc No.[id number]:08/06/2024 Progress Notes Patient: CYNDY MONROE Provider: Lisseth Hernandez M.D. :1955 A ge:68 Y S ex:Male Date:08/06/2024 Address:[address] [place] [address] , [id number] Subjective: * Chief Complaints: * 1 . Abdominal pain. * HPI: G astroenterology: 68 year old male presents with c/o Abdominal Pain P t complain of lt lower abdominal pain that started Tuesday. Pt states that he has hx of diverticulitis and is concerned he may be getting it again. Denies : Nausea. D enies : Vomiting. D enies : Fever.? * ROS: D ERMATOLOGY: no R ramirez. n o H geoff. G ASTROENTEROLOGY: no N ausea. n o V omiting. U ROLOGY: no D ifficulty urinating. n o B lood in urine. * Medical History: H ypertension, CVA, ischemic, brainstem, 2013, treated at [facility], Allergic Rhinitis, Diverticulosis, Prostatitis, Kidney Stones, Colon [...] URRENT TOBACCO USE S moking Status: P atient does NOT smoke. C affeine: yes, frequency: [...] tablet Orally Once a day , Taking Omeprazole 20 MG Capsule Delayed Release TAKE 1 CAPSULE BY MOUTH EVERY DAY , Taking Tamsulosin HCl 0.4 MG Capsule TAKE 1 CAPSULE BY MOUTH DAILY , Taking Sertraline HCl 100 MG Tablet 1 tablet Orally Once a day , Taking Rosuvastatin Calcium 5 MG Tablet 1 tablet Orally Once a day , Taking Lisinopril 10 MG Tablet 1 tab(s) orally once a day , Discontinued Zithromax Z-Onel 250 MG Tablet as directed Orally once daily , Medication List reviewed and reconciled with the patient * Allergies: N .K.D.A. Objective: * Vitals: W t:222, Temp:97.8, BP:112/64, HR:71, Nurse:radha, Ht: 72, BMI:30.11. * Examination: G astroenterology: General Appearance: p leasant, NAD. Oral cavity: n ormal. Sclera: a nicteric. Heart sounds: r egular, normal S1 S2. Lungs: c lear, no rales or wheezes. Abdomen: B S present, soft, minimal LLQ tenderness to palpation, no guarding or rigidity, no masses felt. Assessment: * Assessment: 1. L LQ abdominal pain - R10.32 (Primary) Plan: * Treatment: Value Reference Range w bc 7.6 3.5 - 10 * l ym 24.0% 15 - 50 * m id 6.7% 2 - 15 * g ran 69.3% 35 - 80 * r bc 5.56 3.5 - 5.5 * h gb 17.1 11.5 - 16.5 * h ct 51.9 35 - 55 * m cv 93.3 75 - 100 * m ch 30.7 25 - 35 * m chc 32.9 31 - 38 * p lat 125 100 - 400 * Lisandra Velasco 08/06/2024 11:52:5 6 AM > , Provider reviewed results while patient in office. * Procedure Codes: G 2211 Complex e/[place], [address] CAPILLARY BLOOD DRAW, 42442 CBC WITH AUTO DIFF, 3074F SYST BP LT 130 MM HG, 3078F DIAST BP < 80 MM HG * Follow Up: p rn * Billing Information: * Visit Code: 18176 Office Visit, Est Pt., Level 3. * Procedure Codes: G2211 Complex e/[place]. [address] CAPILLARY BLOOD DRAW. 61652 CBC WITH AUTO DIFF. 3074F SYST BP LT 130 MM HG. 3078F DIAST BP < 80 MM HG. * Electronic signature of Melly Hernandez MD on 12/10/2024 at 08:42 AM EDT Sign off status: Pending * Provider: Lisseth Hernandez M.D. Date: 0 08/06/2024 Generated for Robin yuen/Mckenzie/Kedaritting on: 0 12/10/2024 08:42 AM EDT History and Physical Notes * HPI (History of Present Illness) Category Sub-Category Detail Notes Category Not es Gastroenterology Fever Vomiting Abdominal Pain Pt complain of lt lo wer abdominal pain that started Tuesday. Pt states that he has hx of diverticulitis and is concerned he may be getting it again Nausea Examination Category Sub-Category Detail Notes Category Not es Gastroenterology Oral cavity: normal Sclera: anicteric Heart sounds: regular, normal S1 S 2 Lungs: clear, no rales or w heezes Abdomen: BS present, soft, mi nimal LLQ tenderness to palpation, no guarding or rigidity, no masses felt General Appearance: pleasant, NAD
--- OUTSIDE RECORDS SUMMARY | 2024-08-31 06:00 | XMS_ITS ---
Author Organization [facility] Address [address] [place] [id number] Care Team Providers Care Shredded Filler Cutter Operator Name Role Phone Prabhjot Hernandez Primary Care Provider Allergies No Known Allergies Results Component Value Reference Range Notes Glucose (In-House) Reviewed date:09/04/2024 10:15:04 AM Interpretation:106 Performing Lab: Notes/Report: 106 blood glucose 106 74 - 106 mg/dL Glycohemoglobin A1c (in hous e) Reviewed date:09/04/2024 10:15:04 AM Interpretation:5.7 Performing Lab: Notes/Report: 5.7 glycohemoglobin 5.7% 5 - 6.5 % P-Comprehensive Metabolic Pa jamison (CMP) Reviewed date:09/04/2024 10:15:04 AM Interpretation:co2- 21, Cr 1.96, gfr 37 Performing Lab: Notes/Report: Test performed by [facility] Formerly named [facility] , [address], [place] [address] Ruy Cuevas MD, Supervisor [employer] CLIA: [id number] Sodium 137 135-145 mmol/L Potassium 4.9 3.5-5.3 mmol/L Chloride 107 97-108 mmol/L CO2 21 22-32 mmol/L Glucose 98 65-99 mg/dL BUN 20 8-23 mg/dL Creatinine 1.96 0.70-1.30 mg/dL Calcium 9.2 8.6-10.4 mg/dL eGFR by Creatinine 37 >59 mL/min/1.73m2 Protein 6.4 6.0-8.3 g/dL Albumin 4.3 3.5-5.3 g/dL Alkaline Phosphatase 100 40-129 IU/L ALT (SGPT) 23 <5-55 IU/L AST (SGOT) 20 <5-46 IU/L Bilirubin, Total 0.4 <0.2-1.2 mg/dL A/G Ratio 2.0 1.1-2.5 P-Lipid Panel Reviewed date:09/04/2024 10:15:04 AM Interpretation:hdl 36 Performing Lab: Notes/Report: Test performed by [facility] [email or web address] [address] [place] [address] , [address], [place] [address] Ruy Cuevas MD, Supervisor [employer] CLIA: [id number] Cholesterol 131 <200 mg/dL Triglycerides 132 <150 mg/dL HDL Cholesterol 36 >39 mg/dL Cholesterol / HDL Ratio 3.64 0.00-4.99 Ratio Non-HDL Cholesterol 95 <130 mg/dL LDL Cholesterol (Calculation) 69 <130 mg/dL LDL Cholesterol Levels* Less than 100 mg/dL Optimal 100 to 129 mg/dL Near Optimal/ Above Optimal 130 to 159 mg/dL Borderline High 160 to 189 mg/dL High 190 mg/dL and above Very High * Categories as recommended by the 2004 ATPIII guidelines LDL/HDL Ratio 1.9 <3.3 Ratio LDL Cholesterol Patient History Test Date: 02/29/2024 LDL Results: 68 Units: mg/dL % Change: - Test Date: 08/31/2024 LDL Results: 69 Units: mg/dL % Change: +1% REASON FOR VISIT 5 months Medications Medication SIG (Take, Route, Frequency, Duration) Notes Start Date End Date Status Metoprolol Succinate ER 100 MG 1 tab(s) orally once a day for 90 days Active Sertraline HCl 100 MG 1 tablet Orally On ce a day for 90 days 04/20/2024 Active Tamsulosin HCl 0.4 MG TAKE 1 CAPSULE BY MOUTH DAILY for 90 Active Omeprazole 20 MG TAKE 1 CAPSULE BY [facility] EVERY DAY Active Farxiga 10 MG TAKE 1 TABLET BY KENNY TH DAILY Active MiraLax 17 GM/SCOOP 1 scoop mixed with 8 ounces of fluid Orally Once a day 12/09/2023 Active Metamucil 4 in 1 Fiber 43 % as directed Orally once daily 12/09/2023 Active CareTouch CPAP & BIPAP Hose 1 DIRECTED Active CoQ10 100 MG 1 cap(s) orally once a day Active Lisinopril 10 MG 1 tab(s) orally once a day Active Rosuvastatin Calcium 5 MG 1 tablet Orall y Once a day Active Aspir-Low 81 MG 1 tab(s) orally once a day Active Vital Signs Blood pressure systolic 110 mm Hg 09/01/19 25 Blood pressure diastolic 60 mm Hg 025 Heart Rate 54 /min 08/31/2024 Height 72 in 08/31/2024 Weight 219.8 lbs 08/31/2024 BMI 29.81 kg/m2 08/31/2024 Encounters Encounter Location Date Provider Diagnosis [facility] [address] [place], [place] [id number] 08/31/2024 Prabhjot Hernandez Essential hypertensi on I10 ; Impaired fasting glucose R73.01 ; Stage 3b chronic kidney disease N18.32 and Mixed hyperlipidemia E78.2 Assessments Encounter Date Diagnosis (ICD Code) Assessment Notes Treatment Notes Treatment Clinical Notes Section Notes 08/31/2024 Essential hypertension (ICD-10 - I10) 08/31/2024 Impaired fasting glucose (ICD-10 - R73.01) 08/31/2024 Stage 3b chronic kidney disease (ICD-10 - N18.32) 08/31/2024 Mixed hyperlipidemia (ICD-10 - E78.2) Plan Of Treatment Medication Medication Name Sig Start Date Stop Date Notes Metoprolol Succinate ER 100 MG 1 tab(s) orally once a day for 90 days Farxiga 10 MG TAKE 1 TABLET BY KENNY TH DAILY Lisinopril 10 MG 1 tab(s) orally once a day Rosuvastatin Calcium 5 MG 1 tablet Orally Once a day Next Appt Details Follow Up: 6 Months, Reason: Provider Name:Prabhjot Jacobson , 03/08/2025 09:00:00 AM, [address] [facility] [address], [address] , [place], [place], [id number], Progress Notes * CYNDY FOREMANDOB:1955 (68 yo M)Acc No.[id number]:08/31/2024 Progress Notes Patient: CYNDY MONROE Provider: Lisseth Hernandez M.D. :1955 A ge:68 Y S ex:Male Date:08/31/2024 Address:[address] [place] [address] , [place], [id number] Subjective: * Chief Complaints: * 1 . 5 months. * HPI: C ardiology: 68 year old male presents with c/o Blood Pressure Elevated P t here to f/u on hypertension, states he is doing well and does not have any concerns. c/o Hyperlipidemia P t is fasting today. * ROS: D ERMATOLOGY: no R ramirez. n o H geoff. G ASTROENTEROLOGY: no N ausea. n o V omiting. U ROLOGY: no D ifficulty urinating. n o B lood in urine. * Medical History: H ypertension, CVA, ischemic, brainstem, Oct. 2014, treated at [facility], Allergic Rhinitis, Diverticulosis, Prostatitis, Kidney [...] fluid Orally Once a day , Taking Omeprazole [...] tab(s) orally once a day , Taking Farxiga 10 MG Tablet TAKE 1 TABLET BY MOUTH DAILY , Discontinued Bactrim DS 800-160 MG Tablet 1 tablet Orally Two times a day , Medication List reviewed and reconciled with the patient * Allergies: N .K.D.A. Objective: * Vitals: W t:219.8, Temp:97.8, BP:110/60, HR:54, Nurse:radha, Ht: 72, BMI:29.81. * Examination: C ardiology: General Appearance: p leasant, NAD. HEENT: u nremarkable. Heart sounds: R RR, normal S1, S2. Lungs: c lear, no rales or wheezes. Extremities: n o leg edema. Assessment: * Assessment: 1. E ssential hypertension - I10 (Primary) 2 . I mpaired fasting glucose - R73.01 3 . S tage 3b chronic kidney disease - N18.32 4 . M ixed hyperlipidemia - E78.2 Plan: * Treatment: Value Reference Range A /G Ratio 2.0 1.1-2.5 - * A lbumin 4.3 3.5-5.3 - g/dL * A lkaline Phosphatase 100 40-129 - IU/L * A LT (SGPT) 23 <5-55 - IU/L * A ST (SGOT) 20 <5-46 - IU/L * B ilirubin, Total 0.4 <0.2-1.2 - mg/dL * B UN 20 8-23 - mg/dL * C alcium 9.2 8.6-10.4 - mg/dL * C hloride 107 97-108 - mmol/L * C O2 21 L 22-32 - mmol/L * C reatinine 1.96 H 0.70-1.30 - mg/dL * G lucose 98 65-99 - mg/dL * P otassium 4.9 3.5-5.3 - mmol/L * S odium 137 135-145 - mmol/L * P rotein 6.4 6.0-8.3 - g/dL * e GFR by Creatinine 37 L >59 - mL/min/1.73m2 * Yessica Acosta 09/04/2024 10:14 :53 AM >See phone encounter 2.?Impaired fasting glucose?LAB: Glucose (In-House) (Collection Date & Time - 08/31/2024)?106* Value Reference Range b lood glucose 106 74 - 106 mg/dL * Lisandra Velasco 08/31/2024 11:11:4 6 AM > Yessica Acosta 09/04/2024 10:14:53 AM >See phone encounter ?LAB: Glycohemoglobin A1c (in house) (Collection Date & Time - 08/31/2024)? 5.7* Value Reference Range g lycohemoglobin 5.7% 5 - 6.5 % * Lisandra Velasco 08/31/2024 11:12:0 1 AM > Yessica Acosta 09/04/2024 10:14:53 AM >See phone encounter 3.?Stage 3b chronic kidney disease? Continue Farxiga Tablet, 10 MG, TAKE 1 TABLET BY MOUTH DAILY.?LAB: P-Comprehensive Metabolic Panel (CMP) (Collection Date & Time - 08/31/2024 09:44 AM)?co2- 21, Cr 1.96, gfr 37* Value Reference Range A /G Ratio 2.0 1.1-2.5 - * A lbumin 4.3 3.5-5.3 - g/dL * A lkaline Phosphatase 100 40-129 - IU/L * A LT (SGPT) 23 <5-55 - IU/L * A ST (SGOT) 20 <5-46 - IU/L * B ilirubin, Total 0.4 <0.2-1.2 - mg/dL * B UN 20 8-23 - mg/dL * C alcium 9.2 8.6-10.4 - mg/dL * C hloride 107 97-108 - mmol/L * C O2 21 L 22-32 - mmol/L * C reatinine 1.96 H 0.70-1.30 - mg/dL * G lucose 98 65-99 - mg/dL * P otassium 4.9 3.5-5.3 - mmol/L * S odium 137 135-145 - mmol/L * P rotein 6.4 6.0-8.3 - g/dL * e GFR by Creatinine 37 L >59 - mL/min/1.73m2 * Yessica Acosta 09/04/2024 10:14 :53 AM >See phone encounter 4.?Mixed hyperlipidemia? Continue Rosuvastatin Calcium Tablet, 5 MG, 1 tablet, Orally, Once a day.?LAB: P-Comprehensive Metabolic Panel (CMP) (Collection Date & Time - 08/31/2024 09:44 AM)?co2- 21, Cr 1.96, gfr 37* Value Reference Range A /G Ratio 2.0 1.1-2.5 - * A lbumin 4.3 3.5-5.3 - g/dL * A lkaline Phosphatase 100 40-129 - IU/L * A LT (SGPT) 23 <5-55 - IU/L * A ST (SGOT) 20 <5-46 - IU/L * B ilirubin, Total 0.4 <0.2-1.2 - mg/dL * B UN 20 8-23 - mg/dL * C alcium 9.2 8.6-10.4 - mg/dL * C hloride 107 97-108 - mmol/L * C O2 21 L 22-32 - mmol/L * C reatinine 1.96 H 0.70-1.30 - mg/dL * G lucose 98 65-99 - mg/dL * P otassium 4.9 3.5-5.3 - mmol/L * S odium 137 135-145 - mmol/L * P rotein 6.4 6.0-8.3 - g/dL * e GFR by Creatinine 37 L >59 - mL/min/1.73m2 * Yessica Acosta 09/04/2024 10:14 :53 AM >See phone encounter ?LAB: P-Lipid Panel (Collection Date & Time - 08/31/2024 09:44 AM)?hdl 36* Value Reference Range C holesterol / HDL Ratio 3.64 0.00-4.99 - Ratio * C holesterol 131 <200 - mg/dL * H DL Cholesterol 36 L >39 - mg/dL * L DL Cholesterol (Calculation) 69 <130 - mg/d L * L DL/HDL Ratio 1.9 <3.3 - Ratio * N on-HDL Cholesterol 95 <130 - mg/dL * T riglycerides 132 <150 - mg/dL * Yessica Acosta 09/04/2024 10:14 :53 AM >See phone encounter * Procedure Codes: G 2211 Complex e/[place], [address] GLUCOSE TEST, 62782 GLYCATED HEMOGLOBIN TEST, Modifiers: QW , 3074F SYST BP LT 130 MM HG, 3078F DIAST BP < 80 MM HG, 3044F HG A1C LEVEL LT 7.0% * Follow Up: 6 Months * Billing Information: * Visit Code: 46015 Office Visit, Est Pt., Level 4. * Procedure Codes: G2211 Complex e/[place]. [address] GLUCOSE TEST. 67542 GLYCATED HEMOGLOBIN TEST. Modifiers: QW 3074F SYST BP LT 130 MM HG. 3078F DIAST BP < 80 MM HG. 3044F HG A1C LEVEL LT 7.0%. * Electronic signature of Melly Hernandez MD on 12/10/2024 at 08:42 AM EDT Sign off status: Pending * Provider: Lissteh Hernandez M.D. Date: 0 08/31/2024 Generated for Robin yuen/Mckenzie/Jackiesmitting on: 0 12/10/2024 08:42 AM EDT History and Physical Notes * HPI (History of Present Illness) Category Sub-Category Detail Notes Category Not es Cardiology Blood Pressure Elevated Pt here to f/u on hypertension, states he is doing well and does not have any concerns Hyperlipidemia Pt is fasting today Examination Category Sub-Category Detail Notes Category Not es Cardiology Lungs: clear, no rales or wheezes HEENT: unremarkable Heart sounds: RRR, normal S1, S2 Extremities: no leg edema General Appearance: pleasant, NAD
--- OUTSIDE RECORDS SUMMARY | 2024-10-15 04:21 | XMS_ITS | Continuity of Care Document ---
Author Organization [facility] Phone Care Team Providers Care Technical Report Writer Name Role Phone MICHAELA REHMAN JR Primary Attending MICHAELA REHMAN JR Admitting DECLINED, PCP Primary Care Unavailable MICHAELA REHMAN JR Unavailable RESULTS Patient: LIZET Dent Date of : 1955 9 LABORATORY RESULTS ORDER 100: PROSTATE SPECIFIC AG PSA (LOINC: 2857-1) ORDER DATE: October 12, 2024 9:10:00 PM [facility] Specimen Source: Serum/Plasm a Specimen Type: Acellular blo od (serum or plasma) specimen PERFORMING LAB: [address] [id number] Result Comment: Final Result Date: October 12, 2024 10:09:00 PM [facility] (TECH: HC) LOINC TEST FLAG RESULT REFERENCE RANGE UPDA PRIMO BY 2857-1 Prostate specific Ag [Mass/volume] in Serum or Plasma N 2.75 ng/mL 0.0 ng/mL - 4.0 ng/mL October 12, 2024 10:09:00 PM [facility] (TECH: HC) LABORATORY NARRATIVE RESULTS Information is not available RADIOLOGY RESULTS Information is not available PATHOLOGY NARRATIVE RESULTS Information is not available MICROBIOLOGY RESULTS No Micro Labs/Results Exist for Patient BLOOD ADMIN RESULTS Information is not available MEDICATIONS HOME MEDICATIONS Status RXNORM NDC Medication Dose Route Frequency Dates Comments Reported By Updated By Drug Treatment Unknown DISCHARGE MEDICATIONS Status RXNORM NDC Medication Dose Route Frequency Dates Comments Physician Updated By No Discharge Medication Info rmation Available INPATIENT MEDICATIONS Status RXNORM NDC Medication Dose Route Frequency Rat e Quantity Dates Comments Physician Updated By No Inpatient Medication Info rmation Available SOCIAL HISTORY SOCIAL HISTORY SNOMED-CT Social History Element Description Effective Dates Offered Cessation Comment UpdatedBy [id number] Smoking Status Unknown If Ever Smoked SOCIAL HISTORY - Gender Sex: Male SOCIAL HISTORY - Status : status i nformation is not available Intention in Next Year: intention information is not available SOCIAL HISTORY - Sexual Behavior Sexual Orientation Gender Identity SNOMED-CT Description SNO MED -CT Description Activity Level No of Partners Partner Type UpdatedBy Information is not available HEALTH CONCERNS Problems Concern Status Health Concern problem infor mation not available. Smoking Status Status Years Used Consumed packs p er day Health Concern smoking histo ry information not available. Family History Concern Status Health Concern family histor y information not available. ENCOUNTERS ENCOUNTER INFORMATION Reason for Visit N40.1 Admission October 12, 2024 9:10:00 PM [facility] [address] [facility] [id number] Discharge October 13, 2024 3:27:00 AM [facility] DI SCHARGED TO HOME OR SELF CARE ENCOUNTER DIAGNOSES Notes information is not bella ilable. Code System Diagnosis Onset Date Diagnosis information is not available. ABSTRACT DIAGNOSES Code System Diagnosis Updated By N40.1 ICD10 BENIGN PROSTATIC HYPERPLASIA WITH LOWER URINARY TRACT SYMPTOMS [id number] on October 15, 2024 8:20:15 AM [facility] N13.8 ICD10 OTHER OBSTRUCTIVE AND REFLUX UROPATHY [id number] on October 15, 2024 8:20:15 AM [facility] N40.1 ICD10 BENIGN PROSTATIC HYPERPLASIA WITH LOWER URINARY TRACT SYMPTOMS [id number] on October 15, 2024 8:20:15 AM [facility] N13.8 ICD10 OTHER OBSTRUCTIVE AND REFLUX UROPATHY [id number] on October 15, 2024 8:20:15 AM [facility] CARE TEAM Care Technical Report Writer Role MICHAELA REHMAN Primary Attending MICHAELA REHMAN Admitting PCP [facility] Primary Care MICHAELA REHMAN Referring CARE TEAM CARE accounting director Role on Team Status Start Date End Date Update d By SHERIE Jon JR, MD Referring normal October 13, 2024 2:50:19 AM [facility] October 13, 2024 3:27:00 AM [facility] [id number] on October 13, 2024 2:50:19 AM [facility] SHERIE Jon JR, MD Attending normal October 13, 2024 2:50:19 AM [facility] October 13, 2024 3:27:00 AM [facility] [id number] on October 13, 2024 2:50:19 AM [facility] SHERIE Jon JR, MD Admitting normal October 13, 2024 2:50:19 AM [facility] October 13, 2024 3:27:00 AM [facility] [id number] on October 13, 2024 2:50:19 AM [facility] DECLINED PCP PCP normal October 12, 2024 9:10:46 PM [facility] October 13, 2024 3:27:00 AM [facility] [id number] on October 13, 2024 2:50:19 AM [facility]
--- OUTSIDE RECORDS SUMMARY | 2024-12-10 08:41 | XMS_ITS | Clinical Summary ---
Author Organization [facility] Address [address] [place] [address] Care Team Providers Care E Commerce Solution Architect Name Role Phone Prabhjot Hernandez MD Primary Care Provider [phone] Allergies No known active allergies Medications Aspirin Buf,CaCarb-MgCa rb-MgO, 81 MG tablet 5 Active coenzyme Q-10 100 MG capsule 0 Active lisinopril 10 MG tablet TAKE 1 TABLET DAILY. 0 Active omeprazole (PriLOSEC) [address] capsule TAKE 1 CAPSULE DAILY. 5 Active rosuvastatin (Crestor) 5 MG tablet TAKE 1 TABLET DAILY. 0 Active tamsulosin (Flomax) 0.4 MG 24 hr capsule TAKE 1 CAPSULE Daily 0 Active sildenafil (Viagra) 25 MG tablet Take 1 tablet (25 mg) by mouth 1 (one) time each day if needed for erectile dysfunction. Active sildenafil (Viagra) 100 MG tablet TAKE 1 TABLET BY MOUTH BY MOUTH NEEDED ONE HOUR BEFORE INTERCOURSE 3 Active Farxiga 10 MG tablet Take 1 tablet (10 mg) by mouth 1 (one) time each day. 4 Active sertraline (Zoloft) 100 MG tablet Take 1 tablet (100 mg) by mouth 1 (one) time each day. Active metoprolol succinate XL (Toprol-XL) 100 MG 24 hr tablet Take 1 tablet (100 mg) by mouth 1 (one) time each day. Do not crush or chew. 90 tablet 3 4 Active Active Problems Problem Noted Date Diagnosed Date CKD (chronic kidney disease) stage 3, GFR 30-59 ml/min 11/30/2019 Alterations of sensations fo llowing cerebrovascular accident 10/17/2014 Essential hypertension 10/17/2014 Hyperlipidemia 10/10/2014 Immunizations Immunization Administration Dates Next Due Influenza, seasonal, injectable, preservative fr ee 04/13/2017,04/16/2014 Tdap 03/16/2023 Family History Medical History Relation Name Comments Stroke Father Relation Name Status Comments Father Social History Tobacco Use Types Packs/Day Years Used Date Smoking Tobacco: Former Passive Smoke Exposure: Past Smokeless Tobacco: Never Tobacco Cessation:Counseling Given: Not Answered Sex and Gender Information Value Date Recorded Sex Assigned at Not on file Legal Sex Male 6:12 PM EDT Gender Identity Not on file Sexual Orientation Not on file Last Filed Vital Signs Vital Sign Reading Time Taken Comments Blood Pressure 104/60 06/01/2024 8:45 AM EST Pulse 62 06/01/2024 8:45 AM EST Temperature 36.6 C (97.8 F) 06/01/2024 8:45 AM EST Respiratory Rate 18 06/01/2024 8:45 AM EST Oxygen Saturation 94% 06/01/2024 8:45 AM EST Inhaled Oxygen Concentration - - Weight 100 kg (220 lb 12.8 oz) 06/01/2024 8:45 A M EST Height 180.3 cm (5' 11 ) 06/01/2024 8:45 AM EST Body Mass Index 30.8 06/01/2024 8:45 AM EST Plan of Treatment Upcoming Encounters Date Type Department Care Team (Late st Contact Info) Description 12/14/2024 10:40 AM EDT Office Visit [facility] [address] [place] [address] [place]ely Shaw, FUR TANNER [address] [address] Health Maintenance Due Date Last Done Comments [facility]-Depression Screening 1955 [facility]-Hepatitis C Screening 1955 [facility]-Medicare Annual Wellness (AWV) 1955 [facility]-Infant/Child/Adol SDOH Screenings 1955 Diabetes: Dental Exam 1966 [facility]- SDOH Screenings 1974 [facility]-Adult SDOH Screenings 1974 CT Colonography 2001 Colonoscopy 2001 FIT-DNA 2001 FIT 2001 FOBT 2001 Sigmoidoscopy 2001 [facility]-Colorectal Cancer Screening 2001 [facility]-Zoster Vaccines (1 of 2) 2006 [facility]-Diabetes: Hemoglobin A1C 10/14/2014 04/16/2014 [facility]-RSV Vaccine: 60+ Years o r (1 - Risk 60-74 years 1-dose series) 2016 [facility]-Abdominal Aortic Aneurys m (AAA) Screening 2021 BMS-MHUKP-30 Vaccine ( - season) 2024 [facility]-Influenza Vaccine (Seaso n Ended) 2025 04/13/2017, 04/16/2014 [facility]-DTaP,Tdap,and Td Vaccine s (2 - Td or Tdap) 03/16/2033 03/16/2023 [facility]-Pneumococcal Vaccine: 50 + Years Completed 02/29/2024 [facility]-Obesity Intervention Completed 024, 12/05/2023, 05/23/2023 HPV Vaccines Aged Out No longer eligi ble based on patient's age to complete this topic [facility]-HIB Vaccines Aged Out No longer e ligible based on patient's age to complete this topic [facility]-Hepatitis A Vaccines Aged Out No longer eligible based on patient's age to complete this topic [facility]-IPV Vaccines Aged Out No longer e ligible based on patient's age to complete this topic [facility]-Rotavirus Vaccines Aged Out No lo nger eligible based on patient's age to complete this topic Procedures Procedure Name Priority Date/Time Associated Diagnosis Comments HEMOGLOBIN A1C Routine 04/16/2014 6:58 AM EDT from Last 3 Months or Most Recently Relevant to Health Maintenance Results * Hemoglobin A1c (04/16/2014 6:58 AM EDT) Hemoglobin A1c 5.3 4.7 - 6.0 % SUNQUEST Comment: (NOTE) Glycohemoglobin, 0 years and up: 4.7 - 6.0% . HbA1c assay performed by an ion-exchange chromatography method that is certified traceable to the DCCT. 04/16/2014 6:58 AM EDT 04/16/2014 7:44 AM EDT us Historical Provider LAB BLOOD ORDERABLES Valeria l Result SUNQUEST from Last 3 Months or Most Recently Relevant to Health Maintenance Insurance MEDICARE Member Subscriber Plan / Payer (Ef fective 2022-Present) Name:Iftikhar Foreman Member ID:[id number] Relation to Subscriber:Self Name:Iftikhar Foreman Subscriber ID:[id number] Payer ID:MEDICARE Group ID:Not on file Type:Medicare Address: [address] [facility] Care Teams E Commerce Solution Architect Relationship Specialty Start Date End Date Prabhjot Hernandez MD [address] [facility] [address] [place] [address] PCP - General 10/31/20
--- OUTSIDE RECORDS SUMMARY | 2024-12-10 08:41 | XMS_ITS | Data Portability ---
Author Organization [facility] Address [address] [place] [address] Assessment No assessment recorded. Plan of Treatment Reminders Order Date Submit Date Provider Last Modified By Organization Details Last Modified Time Details Appointments OV EST 15 2025 10:00A M Darien Bennett Jr, MD Not available Not available Not available Lab PSA, serum or plasma 2024 025 [facility] (Laboratory), [address] , [place], [address], 10/12/2024 18:11:36 PSA, serum or plasma 2023 024 [facility] (Laboratory), [address] [place] [address] , [place], [address], 09/28/2023 17:04:47 urinalysi s, dipstick 2023 024 [email or web address] [facility] [address], [address], 09/28/2023 09:33:42 PSA, total, serum or plasma [email or web address] (Lab Registration) , [address] [place] [address] [place], [address], 09/30/2022 13:52:18 Referral None recorded. Procedures bladder scan (PROC) 2023 024 [facility] [place], [address] [facility], [place], [address], 09/30/2023 07:51:38 Surgeries None recorded. Imaging None recorded. Medication Orders tamsulosi n 0.4 mg capsule 2024 025 [facility]18239, [address], [id number], 10/12/2024 11:08:21 sildenafi l 100 mg tablet 2023 024 [facility], [address], [address], 09/28/2023 13:05:38 tamsulosi n 0.4 mg capsule 2023 024 [facility] #87321, [address], [id number], 09/28/2023 09:27:04 tamsulosi n 0.4 mg capsule [address] [facility] #24183, [address], [id number], 09/17/2022 14:21:09 sildenafi l 100 mg tablet [address] [facility] #23779, [address], [id number], 09/17/2022 11:37:24 Patient TargetsNo targets recorded. Patient InstructionsNo instructions recorded. Reason for Referral None Reported. Results Created Date Observation Date Name Description Value Unit Range Abnormal Flag Note LastModifiedBy Organization Detail LastModifiedTime 09/18/19 23 09/17/2022 PROST ATE SPECI FIC AG (PSA) prostate specific Ag (PSA) 1.97 NG/mL 0.0-4. 0 Not Available [facility] (Lab Registration) [address] , [place], [address], 09/17/2022 16:00:24 09/18/19 23 09/17/2022 PROST ATE SPECI FIC AG (PSA) note Unles s other egan noted testi ng perfo rmed at: [facility] [address] [place] [address] [phone] Brandin padron MD CLIA: [id number] Not Available [facility] (Lab Registration) [address] , [place], [address], 09/17/2022 16:00:24 09/28/19 24 09/28/2023 PROST ATE SPECI FIC AG (PSA) prostate specific Ag (PSA) 2.24 NG/mL 0.0-4. 0 Not Available [facility] (Lab Registration) [address] , [place], [address], 09/28/2023 17:04:47 09/28/19 24 09/28/2023 PROST ATE SPECI FIC AG (PSA) note Unles s other egan noted testi ng perfo rmed at: [facility] [address] [place] [address] [phone] Brandin padron MD CLIA: [id number] Not Available [facility] (Lab Registration) [address], [place], [address], 09/28/2023 17:04:47 09/28/19 24 09/28/2023 urina lysis , dipst ick Leukocytes (reference range) negati ve Not Available [facility] [address], [address], 09/28/2023 09:18:55 09/28/19 24 09/28/2023 urina lysis , dipst ick Nitrite (reference range:) negati ve Not Available [facility] [address], [address], 09/28/2023 09:18:55 09/28/19 24 09/28/2023 urina lysis , dipst ick Urobilinogen (reference range) 0.2 Not Available [address], [address], 09/28/2023 09:18:55 09/28/19 24 09/28/2023 urina lysis , dipst ick Protein (reference range) negati ve Not Available [address], [address], 09/28/2023 09:18:55 09/28/19 24 09/28/2023 urina lysis , dipst ick pH (reference range 5-8.5) 5.5 Not Available [address], [address], 09/28/2023 09:18:55 09/28/19 24 09/28/2023 urina lysis , dipst ick Blood (reference range:) negati ve Not Available [address], [address], 09/28/2023 09:18:55 09/28/19 24 09/28/2023 urina lysis , dipst ick Specific [place] (reference range) 1.020 Not Available [address], [address], 09/28/2023 09:18:55 09/28/19 24 09/28/2023 urina lysis , dipst ick Ketone (reference range) negati ve Not Available [address], [address], 09/28/2023 09:18:55 09/28/19 24 09/28/2023 urina lysis , dipst ick Bilirubin (reference range) negati ve Not Available [address], [place], [address], 09/28/2023 09:18:55 09/28/19 24 09/28/2023 urina lysis , dipst ick Glucose (reference range) 500 Not Available [facility] [place] [address] [place], [address], 09/28/2023 09:18:55 10/13/19 25 10/12/2024 PROST ATE SPECI FIC AG (PSA) prostate specific Ag (PSA) 2.75 NG/mL 0.0-4. 0 Not Available [facility] (Lab Registration) [address] , [place], [address], 10/12/2024 18:11:36 10/13/19 25 10/12/2024 PROST ATE SPECI FIC AG (PSA) note Unles s other egan noted testi ng perfo rmed at: [facility] [address] [place] [address] [phone] Brandin padron MD CLIA: [id number] Not Available [facility] (Lab Registration) [address] , [place], [address], 10/12/2024 18:11:36 Result Notes None recorded. Problems Name Problem SNOMED Code Status Onset Date Resolution Date Notes Provider Name and Address Organization Details Recorded Time Transient cerebral ischemia 692223539 Active 2022 DANYEL Galvez - [facility] - [place] [facility] [place] 3 15:52:03 Hypertensiv e disorder 47372134 Active 2022 DANYEL Galvez - [facility] - [place] [facility] [place] 3 15:52:12 Hyperlipide ivanna 75259121 Active 2022 DANYEL Galvez - [facility] - [place] [facility] [place] 3 15:52:22 Acute stroke 1492635310640 04 Active 2022 DANYEL Galvez - [facility] - [place] [facility] [place] 3 11:02:07 Kidney stone 21589973 Active 2022 DANYEL Galvez [facility] & [place] 3 11:02:17 Sleep apnea 93468258 Active 2022 DANYEL Galvez [facility] & [place] 3 11:02:27 Problem Notes None recorded. Procedures Surgical History Date Name Laterality Status Provider Name and Address Organization Details Recorded Time tonsillectomy completed Ji PRESTON [facility] & [place] 09/08/2022 15:52:57 Hernia Repair completed Ji PRESTON [facility] & [place] 09/08/2022 15:53:12 lithotripsy completed Ji PRESTON [facility] & [place] 09/08/2022 15:53:30 Imaging Results None recorded. Procedure Notes None recorded. Medical Equipment None Reported. Allergies No known drug allergies Medications Name Sig Start Date Stop Date Status Note LastModified by Organization Details LastModified Time amoxicillin 500 mg capsule TAKE 1 CAPSULE BY MOUTH 3 TIMES DAILY FOR 10 DAYS 10/12 completed Not Available Not Available Not Available metoprolol succinate ER 100 mg tablet,exte nded release 24 hr TAKE 1 TABLET BY MOUTH DAILY active Not Available Not Available No t Available sertraline 100 mg tablet TAKE 1 TABLET BY MOUTH DAILY active Not Available Not Available No t Available sulfamethox azole 800 mg-trimetho prim 160 mg tablet TAKE 1 TABLET BY MOUTH TWICE DAILY FOR 5 DAYS active Not Available Not Available No t Available sildenafil 100 mg tablet TAKE 1 TABLET BY MOUTH NEEDED active Not Available Not Available No t Available amitriptyli ne 25 mg tablet TAKE 1 TABLET BY MOUTH EVERY DAY AT BEDTIME active Not Available Not Available No t Available tamsulosin 0.4 mg capsule TAKE 1 CAPSULE BY MOUTH EVERY NIGHT AT BEDTIME 2024 active Not Available Not Available Not Avai lable erythromyci n 5 mg/gram (0.5 %) eye ointment APPLY 1/4 TH INCH STRIP TO AFFECTED EYE TWICE DAILY 3 DAYS BEFORE BUT NOT DAY OF SURGERY 10/12 completed Not Available Not Available Not Available lisinopril 10 mg tablet TAKE 1 TABLET BY MOUTH DAILY active Not Available Not Available No t Available omeprazole 20 mg capsule,del ayed release TAKE 1 CAPSULE BY MOUTH DAILY active Not Available Not Available No t Available ibuprofen 600 mg tablet TAKE 1 TABLET BY MOUTH EVERY 8 HOURS NEEDED FOR PAIN active Not Available Not Available No t Available atropine 1 % eye drops active Not Available Not Available Not Available ondansetron 4 mg disintegrat ing tablet DISSOLVE 1 TABLET IN MOUTH EVERY 6 HOURS FOR NAUSEA AND VOMITING active Not Available Not Available No t Available sertraline 50 mg tablet TAKE 1 TABLET BY MOUTH DAILY active Not Available Not Available No t Available rosuvastati n 5 mg tablet TAKE 1 TABLET BY MOUTH DAILY active Not Available Not Available No t Available peg 3350-electr olytes 236 gram-22.74 gram-6.74 gram-5.86 gram solution MIX AND DRINK 240MLS EVERY 10 MINUTES UNTIL FECAL EFFLUENT IS CLEAR active Not Available Not Available No t Available Invokana 100 mg tablet TAKE 1 TABLET BY MOUTH EVERY DAY active Not Available Not Available No t Available Farxiga 10 mg tablet TAKE 1 TABLET BY MOUTH DAILY active Not Available Not Available No t Available ID NOW COVID-19 Test Kit TEST DIRECTED TODAY active Not Available Not Available No t Available Vitals Date Recorded Body height Body mass index (BMI) Body weight Body temperature Provider Name and Address Organization Details Last Updated DateTime 09/17/2022 180.34 cm 29.7 kg/m2 72250.17 g 98 [degF] Ji Nicolas [facility] & [place] 09/17/2022 11:22:00 Date Recorded Body height Body mass index (BMI) Body weight Body temperature Provider Name and Address Organization Details Last Updated DateTime 09/28/2023 175.26 cm 22.2 kg/m2 60962.86 g 97.5 [degF] Cindyclint Londono [facility] & [place] 09/28/2023 09:06:32 Date Recorded Body height Body mass index (BMI) Body weight Body temperature Provider Name and Address Organization Details Last Updated DateTime 10/12/2024 175.26 cm 22.2 kg/m2 96254.86 g 98.1 [degF] Carlin Toritoaleta [facility] & [place] 10/12/2024 10:39:45 Social History Question Answer Notes LastModified by Organizat ion Details LastModified Time Tobacco Smoking Status Never Smoker Ji Nicolas null, [place] - [facility] - [place] [facility] [place] 09/08/2022 15:52:41 What Is Your Level Of Caffeine Consumption? Occasional [email or web address] Information not available 09/28/2023 Sex: Unknown Functional Status Question Answer Note LastModified by Organization D etails LastModified Time What is your level of alcohol consumption? None [email or web address] Information not available 09/08/2022 Mental Status None recorded. Family History Relationship Description Onset Age of this Age Resolved Age Notes LastModified by Organization Details LastModified Time Mother Alzheimer's disease dec [email or web address] Not available 2022 11:03:19 Father Aneurysm dec [email or web address] Not availabl e 09/17/2022 11:03:30 Brother Family history unknown [email or web address] Not available 2022 11:03:41 Sister Family history unknown [email or web address] Not available 2022 11:03:41 Medical History No medical history recorded. Past Encounters Encounter ID Performer Location Encounter Start Date Encounter Closed Date Diagnosis/Indication Diagnosis SNOMED-CT Code Diagnosis ICD10 Code Diagnosis Note [id number] Darien Bennett Jr, MD [facility] [address] [address] 09/17/2022 10:39:11 09/17/2022 11:40:23 Lower urinary tract symptoms due to benign prostatic hypertrophy 1960509823 9101 N40.1 patient with history of BPH. He continues on tamsulosin in his voiding well. His prescripti on was refilled today. Erectile dysfunction 860 230782 F52.21 patient with history of erectile dysfunctio n. He continues on sildenafil 100 mg p.r.n. with good results. Screening for malignant neoplasm of prostate 210013152 Z12.5 patient's last PSA was 1.8 in February 2021. His digital rectal examinatio n today is benign. A PSA will be repeated today. [id number] Darien Bennett Jr, MD [facility] [address] [address] 09/28/2023 08:39:45 09/28/2023 09:18:49 Screening for malignant neoplasm of prostate 509934309 Z12.5 Patient's PSA 1 year ago was 1.9 which is stable from his previous PSAs. Previous prostate examinatio n was 30 g, smooth and symmetric. We will repeat a PSA today. Erectile dysfunction 860 037097 F52.21 patient with history of erectile dysfunctio n. He continues on sildenafil 100 mg p.r.n. he states that he does not use it very often but he does not give a rigid erection. He also states his partner is not that interested in sex These days. Benign pro static hyperplasia with outflow obstruction 824316080 N40.1 patient with history of BPH. He continues on tamsulosin with good results. We will refill his medication today. Chronic ki dney disease 720803302 N18.9 patient with history of chronic kidney disease. He follows with Nephrology . He states his recent GFR was 33. [id number] Darien Bennett Jr, MD [facility] [address] [address] 10/12/2024 10:27:24 10/12/2024 11:19:53 Benign prostatic hyperplasia with outflow obstruction 082013860 N40.1 N13.8 patient with history of BPH. He continues on tamsulosin with good results. We will refill his medication today. Screening for malignant neoplasm of prostate 509932859 Z12.5 Patient's PSA last year was 2.2. Previous prostate examinatio n was 30 g, smooth and symmetric. We will repeat a PSA today. Erectile dysfunction 860 547781 N52.9 patient with history of erectile dysfunctio n. Patient's is ill and he has not been using it and states he has plenty of medication if he needs it. Chronic ki dney disease stage 4 377408735 N18.4 Patient with history of chronic kidney disease. Recent GFR was 37 which is stable. Health Concerns Section Related Observation LastModified by Organization Detai ls LastModified Time None Recorded Concern Status LastModified by Organization Details LastModified Time None Recorded Advance Directives Directive None Recorded Payers Insurance Date Sequence Insurance Name Policy Number Policy Newsome Covered Member ID Newsome Member ID Guarantor Name 10/09/2024 1 [place] ([place]ICARE[place] Iftikhar Foreman [id number] Iftikhar Foreman 09/17/2022 2 [employer] (MEDICARE SUPPLEMENT) Iftikhar Foreman [id number] Iftikhar Foreman Notes Date Note Type Note Provider Name and Address Organization Details Recorded Time 09/17/2022 text/html Patient is a 66-year-old white male with a history of BPH and erectile dysfunction. He was previously seen at [facility] and transferred his care to [facility]. Patient continues on tamsulosin for his BPH denies any voiding difficulties. He also continues on with sildenafil 100 mg p.r.n. for a history of erectile dysfunction. His last PSA was 1.8 in February 2021. Patient also has a history of chronic kidney disease and he follows with Nephrology. He states his most recent GFR was 35. Darien Bennett Jr, MD [address] [place] [address], [address], [address], [facility] & [place] 09/17/2022 14:21:46 09/28/2023 text/html Patient is a 67-year-old white male with history of BPH and erectile dysfunction. He returns today routine follow-up. Patient continues on tamsulosin for lower urinary tract symptoms and states he has some occasional urinary hesitancy but doing well otherwise. His bladder scan today was 59 cc.Patient continues on sildenafil 100 mg p.r.n. with adequate results. He states his partner is not that interested these days.Patient with history kidney disease. He follows with Nephrology. States his recent GFR was 33.Patient's PSA was 1.9 a year ago. Darien Bennett Jr, MD [address] [facility], [address], [place], [address], [facility] & [place] 09/28/2023 13:05:41 10/12/2024 text/html Patient is a 68-year-old white male history erectile dysfunction and BPH. Returns for yearly follow-up. He continues on tamsulosin and states he is voiding well.Patient with history of erectile dysfunction but his is ill and he has not been sexually active.Patient with history of chronic kidney disease and follows with Nephrology. He states his recent GFR was 37.PSA 1 year ago was 2.2. Darien Bennett Jr, MD [address] [place] [address], [address], [place], [address], [facility] & [place] 10/12/2024 12:38:16
--- OUTSIDE RECORDS SUMMARY | 2024-12-10 08:42 | XMS_ITS | Continuity of Care Document ---
Author Organization DANYEL PRESTON [facility] & [place] [facility] [place] Address [address] [place] [address] Assessment No assessment recorded. Plan of Treatment Reminders Order Date Submit Date Provider Last Modified By Organization Details Last Modified Time Details Appointments OV EST 15 2025 10:00A M Darien Bennett Jr, MD Not available Not available Not available Lab PSA, serum or plasma 2024 025 [facility] (Laboratory), [address] [place] [address], [address], 10/12/2024 18:11:36 Referral None recorded. Procedures None recorded. Surgeries None recorded. Imaging None recorded. Medication Orders tamsulosi n 0.4 mg capsule 2024 025 [facility][id number], [address] [facility] [address] [place], [place], [phone], 10/12/2024 11:08:21 Patient TargetsNo targets recorded. Patient InstructionsNo instructions recorded. Reason for Referral None Reported. Problems Name Problem SNOMED Code Status Onset Date Resolution Date Notes Provider Name and Address Organization Details Recorded Time Transient cerebral ischemia 815468515 Active 2022 DANYEL Galvez [facility] & [place] 3 15:52:03 Hypertensiv e disorder 80512313 Active 2022 DANYEL Galvez [facility] & [place] 3 15:52:12 Hyperlipide ivanna 14962332 Active 2022 DANYEL Galvez [place] & [place] 3 15:52:22 Acute stroke 0152928320006 04 Active 2022 DANYEL Galvez [place] [facility] [place] 3 11:02:07 Kidney stone 04299114 Active 2022 DANYEL Galvez [place] [facility] [place] 3 11:02:17 Sleep apnea 61592396 Active 2022 DANYEL Galvez [place] [facility] [place] 3 11:02:27 Problem Notes None recorded. Procedures Surgical History Date Name Laterality Status Provider Name and Address Organization Details Recorded Time tonsillectomy completed Ji Castro [place] [facility] [place] 09/08/2022 15:52:57 Hernia Repair completed Ji Castro [place] [facility] [place] 09/08/2022 15:53:12 lithotripsy completed Ji Castro [place] [facility] [place] 09/08/2022 15:53:30 Imaging Results None recorded. Procedure [...] Updated DateTime 10/12/2024 175.26 cm 22.2 kg/m2 35923.86 g 98.1 [degF] Carlin PRESTON [facility] & [place] 10/12/2024 10:39:45 Social History Question Answer Notes LastModified by Organizat ion Details LastModified Time Tobacco Smoking Status Never Smoker DANYEL Galvez [facility] & [place] 09/08/2022 15:52:41 What Is Your Level Of Caffeine Consumption? Occasional [email or web address] Information not available 09/28/2023 Sex: Unknown Functional Status Question Answer Note LastModified by Organization D etails LastModified Time What is your level of alcohol consumption? None [email or web address] Information not available 09/08/2022 Mental Status None recorded. Family History Relationship Description Onset Age of this Age Resolved Age Notes LastModified by Organization Details LastModified Time Mother Alzheimer's disease dec [email or web address] Not available 2022 11:03:19 Father Aneurysm dec [email or web address] Not availabl e 09/17/2022 11:03:30 Brother Family history unknown [email or web address] Not available 2022 11:03:41 Sister Family history unknown [email or web address] Not available 2022 11:03:41 Medical History No medical history recorded. Past Encounters Encounter ID Performer Location Encounter Start Date Encounter Closed Date Diagnosis/Indication Diagnosis SNOMED-CT Code Diagnosis ICD10 Code Diagnosis Note [id number] Darien Bennett Jr, MD [facility] [address] [address] 10/12/2024 10:27:24 10/12/2024 11:19:53 Benign prostatic hyperplasia with outflow obstruction 877416080 N40.1 N13.8 patient with history of BPH. He continues on tamsulosin with good results. We will refill his medication today. Screening for malignant neoplasm of prostate 567192581 Z12.5 Patient's PSA last year was 2.2. Previous prostate examinatio n was 30 g, smooth and symmetric. We will repeat a PSA today. Erectile dysfunction 860 543102 N52.9 patient with history of erectile dysfunctio n. Patient's is ill and he has not been using it and states he has plenty of medication if he needs it. Chronic ki dney disease stage 4 933507224 N18.4 Patient with history of chronic kidney disease. Recent GFR was 37 which is stable. Health Concerns Section Related Observation LastModified by Organization Detai ls LastModified Time None Recorded Concern Status LastModified by Organization Details LastModified Time None Recorded Payers Encounter Date Sequence Insurance Name Policy Number Policy [place] Covered Member ID Newsome Member ID Guarantor Name 10/12/2024 1 [place]ARE[place] Iftikhar Foreman [id number] Iftikhar Foreman 10/12/2024 2 [employer] (MEDICARE SUPPLEMENT) Iftikhar Foreman [id number] Iftikhar Foreman Notes Date Note Type Note Provider Name and Address Organization Details Recorded Time 10/12/2024 text/html Patient is a 68-year-old white [...] ago was 2.2. Darien Bennett Jr, MD [address] [place] [address], [address], [place], [address], [facility] - [place] [facility] [place] 10/12/2024 12:38:16
--- OUTSIDE RECORDS SUMMARY | 2024-12-10 08:42 | XMS_ITS | Patient Health Record ---
Author Organization [facility]-[place] Address [address] [place] [id number] Care Team Providers Care Optical Advisor Name Role Phone Prabhjot Hernandez Primary Care Provider Allergies No Known Allergies Results Component Value Reference Range Notes Glucose (In-House) Reviewed date:03/01/2024 09:14:37 AM Interpretation:97 Performing Lab: Notes/Report: 97 blood glucose 97 74 - 106 mg/dL CBC Venipuncture (in house) Reviewed date:03/01/2024 09:14:37 AM Interpretation: Performing Lab: Notes/Report: wbc 5.7 3.5 - 10 lymph 31.4% 15 - 50 mid 6.9% 2 - 15 gran 61.7% 35 - 80 rbc 5.63 3.5 - 5.5 hgb 16.7 11.5 - 16.5 hct 52.3 35 - 55 mcv 92.9 75 - 100 mch 29.7 25 - 35 mchc 32.0 31 - 38 platlet 158 100 - 400 Glycohemoglobin A1c (in hous e) Reviewed date:03/01/2024 09:14:37 AM Interpretation:5.7 Normal Performing Lab: Notes/Report: 5.7 Normal glycohemoglobin 5.7% 5 - 6.5 % P-Comprehensive Metabolic Pa jamison (CMP) Reviewed date:03/01/2024 09:14:37 AM Interpretation:Cr 2, gfr 36 Performing Lab: Notes/Report: Test performed by [facility], [employer] [address] [place] [address] , [address], [place] [address] Ruy Cuevas MD, Guest Service Agent CLIA: [id number] Sodium 139 135-145 mmol/L Potassium 4.8 3.5-5.3 mmol/L Chloride 105 97-108 mmol/L CO2 25 22-32 mmol/L Glucose 97 65-99 mg/dL BUN 19 8-23 mg/dL Creatinine 2.00 0.70-1.30 mg/dL Calcium 9.5 8.6-10.4 mg/dL eGFR by Creatinine 36 >59 mL/min/1.73m2 Protein 6.5 6.0-8.3 g/dL Albumin 4.2 3.5-5.3 g/dL Alkaline Phosphatase 101 40-129 IU/L ALT (SGPT) 26 <5-55 IU/L AST (SGOT) 20 <5-46 IU/L Bilirubin, Total 0.6 <0.2-1.2 mg/dL A/G Ratio 1.8 1.1-2.5 P-Lipid Panel Reviewed date:03/01/2024 09:14:37 AM Interpretation:hdl 35 Performing Lab: Notes/Report: Test performed by [employer] [address] [place] [address] , [address], [place] [address] Ruy Cuevas MD, Guest Service Agent CLIA: [id number] Cholesterol 126 <200 mg/dL Triglycerides 116 <150 mg/dL HDL Cholesterol 35 >39 mg/dL Cholesterol / HDL Ratio 3.60 0.00-4.99 Ratio Non-HDL Cholesterol 91 <130 mg/dL LDL Cholesterol (Calculation) 68 <130 mg/dL LDL Cholesterol Levels* Less than [...] Results: 68 Units: mg/dL % Change: - P-Phosphorus Reviewed date:03/01/2024 09:14:37 AM Interpretation: Normal Performing Lab: Notes/Report: Test performed by [employer] [address] [place], [place] [address] [place] [address] Ruy Cuevas MD, Guest Service Agent CLIA: [id number] Phosphorus 2.7 2.5-4.5 mg/dL P-PSA Reviewed date:03/01/2024 09:14:37 AM Interpretation: Normal Performing Lab: Notes/Report: Test performed by [facility] [address] [place] [address] [place] [address] Ruy Cuevas MD, Guest Service Agent CLIA: [id number] PSA 1.56 <4.00 ng/mL Please note this is an ultrasensitive PSA assay with a lower limit of detection of 0.014 ng/mL. This test is performed by the [employer] ECLIA methodology. Values obtained with different assay methods or kits cannot be directly compared. P-Parathyroid Hormone (PTH) Intact Reviewed date:03/01/2024 09:14:37 AM Interpretation: Normal Performing Lab: Notes/Report: Test performed by [employer] [address] [place], [place] [address] [place] [address] Ruy Cuevas MD, Guest Service Agent CLIA: [id number] Parathyroid Hormone (PTH) Intact 40.6 15.0-65.0 pg/mL P-TSH reflex to FT4 Reviewed date:03/01/2024 09:14:37 AM Interpretation: Normal Performing Lab: Notes/Report: Test performed by [employer] [address] [place] [address] , [address], [place] [address] Ruy Cuevas MD, Guest Service Agent CLIA: [id number] TSH reflex to FT4 2.15 0.43-5.25 mU/L P-Microalbumin/Creatinine, R andom Urine Sample Reviewed date:03/01/2024 09:14:37 AM Interpretation: Normal Performing Lab: Notes/Report: Test performed by [employer] [address] [place] [address] , [address], [place] [id number] Ruy Cuevas MD, Guest Service Agent CLIA: [id number] Albumin/Creatinine Ratio, Urine 12 0-30 ug/m g Microalbumin, Urine, Random 1.6 Creatinine, Urine 136.4 Influenza Screen (in house) Reviewed date:04/10/2024 11:02:04 [...] AM Interpretation: Performing Lab: Notes/Report: Result: Neg Glycohemoglobin A1c (in hous e) Reviewed date:09/04/2024 10:15:04 AM Interpretation:5.7 Performing Lab: Notes/Report: 5.7 glycohemoglobin 5.7% 5 - 6.5 % P-Lipid Panel Reviewed date:09/04/2024 10:15:04 AM Interpretation:hdl 36 Performing Lab: Notes/Report: Test performed by [facility] [address] [place] [address] , [address], [place] [address] Ruy Cuevas MD, Guest Service Agent CLIA: [id number] Cholesterol 131 <200 mg/dL Triglycerides 132 <150 [...] Results: 69 Units: mg/dL % Change: +1% P-Comprehensive Metabolic Pa jamison (CMP) Reviewed date:09/04/2024 10:15:04 AM Interpretation:co2- 21, Cr 1.96, gfr 37 Performing Lab: Notes/Report: Test performed by [facility], [employer] [facility] [facility] , [address], [place] [address] Ruy Cuevas MD, Guest Service Agent CLIA: [id number] Sodium 137 135-145 mmol/L Potassium 4.9 3.5-5.3 [...] 0.4 <0.2-1.2 mg/dL A/G Ratio 2.0 1.1-2.5 Glucose (In-House) Reviewed date:09/04/2024 10:15:04 AM Interpretation:106 Performing Lab: Notes/Report: 106 blood glucose 106 74 - 106 mg/dL CBC Fingerstick (in house) Reviewed date:08/06/2024 05:23:42 [...] - 38 plat 125 100 - 400 Reason For Referral No Information Medications Medication SIG (Take, Route, Frequency, Duration) Notes Start Date End Date Status MiraLax 17 GM/SCOOP 1 scoop mixed with 8 ounces of fluid Orally Once a day 12/09/2023 Active Lisinopril 10 MG 1 tab(s) orally once a day Active Metamucil 4 in 1 Fiber 43 % as directed Orally once daily 12/09/2023 Active CareTouch CPAP & BIPAP Hose 1 DIRECTED Active Metoprolol Succinate ER 100 MG 1 tab(s) orally once a day for 90 days Active CoQ10 100 MG 1 cap(s) orally once a day Active Omeprazole 20 MG 1 cap(s) Orally Once a day for 90 days Active Aspir-Low 81 MG 1 tab(s) orally once a day Active Rosuvastatin Calcium 5 MG 1 tablet Orall y Once a day for 90 days Active Tamsulosin HCl 0.4 MG TAKE 1 CAPSULE BY MOUTH DAILY for 90 Active Sertraline HCl 100 MG TAKE 1 TABLET BY M OUTH DAILY for 90 Active Farxiga 10 MG 1 tablet Orally Once a day for 90 days Active Immunizations Vaccine Route Administration Date Status Comme nts Fluzone High Dose (65yr and older) IM Intramuscular 02/29/2024 Administered Fluzone Quad (6months&older) IM Intramuscular 04/14/2018 Administered Prevnar (PCV20) IM Intramuscular 02/29/2024 Administered Tetanus Tdap-Adacel (over 7yrs) Unknown 03/16/2023 Administered xFlu shot- 6months-36 months of bkd-CWGS-QZIU-trivalent Unknown 04/16/2014 Administered xFlu shot- 6months-36 months of rao-GRLT-LGUW-trivalent Unknown 04/13/2017 Administered Problems Problem Type SNOMED Code ICD Code Onset Dates Problem Status W/U Status Risk Notes Problem 88700780 Essential hypertension (I10) Active confirmed Problem 49779319 Anxiety (F41.9) Active confirmed Problem 810285551 History of CVA (cerebrovascular accident) (Z86.73) Active confirmed Problem 819517445 Impaired fasting glucose (R73.01) Active confirmed Problem 989503415 Mixed hyperlipid emia (E78.2) Active confirmed Problem 87195359 Chronic prostati tis (N41.1) Active confirmed Problem 821114807 History of colon polyps (Z86.010) Active confirmed Problem 63443890 Constipation, unspecified constipation type (K59.00) Active confirmed Problem 1403362440129 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) Active confirmed Problem 013492478 Gastroesophageal reflux disease, esophagitis presence not specified (K21.9) Active confirmed Problem 96273726 Hypersomnia (G47.10) Active confirmed Problem 112324631 Benign prostatic hyperplasia, unspecified whether lower urinary tract symptoms present (N40.0) Active confirmed Problem 839838903 CKD (chronic kid jacque disease) stage 3, GFR 30-59 ml/min (N18.3) Active confirmed Problem 047141600 Stage 3b chronic kidney disease (N18.32) Active confirmed Problem 378096608 Stage 3a chronic kidney disease (N18.31) Active confirmed Vital Signs Heart Rate 54 /min 08/31/2024 Blood pressure diastolic 60 mm Hg 08/31/2024 Height 72 in 08/31/2024 Blood pressure systolic 110 mm Hg 08/31/2024 Weight 219.8 lbs 08/31/2024 BMI 29.81 kg/m2 08/31/2024 Encounters Encounter Location Date Provider Diagnosis [facility] [address] [facility] [address] [place], [place] [id number] 02/29/2024 Prabhjot Coldwater Essential hypertensi on I10 ; Mixed hyperlipidemia E78.2 ; Impaired fasting glucose R73.01 ; Stage 3b chronic kidney disease N18.32 ; Gastroesophageal reflux disease, esophagitis presence not specified K21.9 ; Prostate cancer screening Z12.5 and Anxiety F41.9 [facility] [address] [facility] [address] [place], [place] [id number] 03/29/2024 Prabhjot Coldwater Anxiety F41.9 [facility] [address] [place], [place] [id number] 04/09/2024 Prabhjot Coldwater Acute URI J06.9 [facility] [address] [facility] [address] [place], [place] [id number] 08/06/2024 Prabhjot Coldwater LLQ abdominal pain R 10.32 [facility] [address] [place], [place] [id number] 08/31/2024 Prabhjot Coldwater Essential hypertensi on I10 ; Impaired fasting glucose R73.01 ; Stage 3b chronic kidney disease N18.32 and Mixed hyperlipidemia E78.2 [facility] [address] [place], [place] [id number] 03/01/2024 Prabhjot Coldwater [facility] [address] [place], [place] [id number] 04/20/2024 Prabhjot Coldwater Anxiety F41.9 [facility] [address] [facility] [address] [place] [id number] 06/26/2024 Prabhjot Hernandez [facility] [address] [facility] [address] [place] [id number] 09/04/2024 Prabhjot Hernandez Assessments Encounter Date Diagnosis (ICD Code) Assessment Notes Treatment Notes Treatment Clinical Notes Section Notes 02/29/2024 Essential hypertension (ICD-10 - I10) 02/29/2024 Mixed hyperlipidemia (ICD-10 - E78.2) 03/29/2024 Anxiety (ICD-10 - F41.9) 04/09/2024 Acute URI (ICD-10 - J06.9) 04/20/2024 Anxiety (ICD-10 - F41.9) 08/06/2024 LLQ abdominal pain (ICD-10 - R10.32) 08/31/2024 Essential hypertension (ICD-10 - I10) 08/31/2024 Impaired fasting glucose (ICD-10 - R73.01) 02/29/2024 Impaired fasting glucose (ICD-10 - R73.01) 08/31/2024 Stage 3b chronic kidney disease (ICD-10 - N18.32) 02/29/2024 Stage 3b chronic kidney disease (ICD-10 - N18.32) 08/31/2024 Mixed hyperlipidemia (ICD-10 - E78.2) 02/29/2024 Gastroesophageal reflux disease, esophagitis presence not specified (ICD-10 - K21.9) 02/29/2024 Prostate cancer screening (ICD-10 - Z12.5) 02/29/2024 Anxiety (ICD-10 - F41.9) Plan Of Treatment Next Appt Details Provider Name:Prabhjot sal, 03/08/2025 09:00:00 AM, [address] [facility], [address], [place], [id number], Insurance Providers Payer Name Payer Address Payer Phone Subscriber Number Group Number Insured Name Patient Relationship to Insured Coverage Start Date Coverage End Date MEDICARE PART B [address] [address] [place] [id number] CYNDY FOREMAN Self - patient is the insured [place] [address] [id number] [phone] [id number] Plan N [id number] CAN Self - patient is the insured Medical (General) History Medical History History ICD Code Hypertension CVA, ischemic, brainstem, 2013, katerine ated at [facility] Allergic Rhinitis Diverticulosis Prostatitis Kidney Stones Colon Polyps, Scope 2010 Impaired Fasting Glucose Esophageal Reflux Glaucoma, s/p laser periph. iridotomy BPH, s/p Urology evaluation in 2017 Renal Insufficiency Chronic kidney disease, s/p Nephrology e valuation in 2019 Mild Sleep Apnea - Cpap at night Surgical History Surgery Date(Month/Year) Tonsillectomy Kidney Stones 2004 Umbilical Hernia Repair 2011 Colonoscopy 2021 Right Eye Cataract Surgery 10/2023 Hospitalization History Reason Date(Month/Year) Kidney Stones 2004 Stroke- 04/15-
[2024-12-10 08:49] LABS: Microscopic, Urine URINE MICROSCOPIC (MICROSCOPIC)
[2024-12-10 09:10] LABS: Hematocrit 50.9 % (42.0-52.0); Hemoglobin 16.3 g/dL (14.1-18.0); Mean Corpuscular Hemoglobin 29.7 pg (27.0-31.2); Mean Corpuscular Volume 92.9 fl (80-94); Nucleated Red Blood Cells # 0 10^3/uL; Nucleated Red Blood Cells % 0 %; Platelet Count 167 K/mm3 (142-424); Red Blood Count 5.48 M/mm3 (4.60-6.20); Red Cell Distribution Width 13.8 % (11.5-17.5); Red Cell Distribution Width-SD 46.6 fL; White Blood Count 7.2 K/mm3 (4.8-10.8)
[2024-12-10 09:12] LABS: Appearance,Urine CLEAR (Clear); Bilirubin,Urine Negative (Negative); Blood, Urine Negative (Negative); Color,Urine YELLOW (Yellow); Glucose,Urine (UA) 3+ (Negative); Ketones,Urine Negative (Negative); Leukocyte Esterase,Urine Negative (Negative); Nitrate,Urine Negative (Negative); Protein,Urine Negative (Negative); Specific Gravity, Urine 1.015 (1.005-1.030); Urobilinogen,Urine 0.2 EU/dl (0.2)
[2024-12-10 09:26] LABS: Creatinine,Urine Random 114 mg/dL (Not Estab.)
[2024-12-10 09:41] LABS: Albumin Level 4.3 g/dl (3.5-5.0); Anion Gap 6.7 mEq/L (5-15); Blood Urea Nitrogen 21 mg/dl (9-20); Calcium 9.7 mg/dl (8.4-10.2); Carbon Dioxide 30 mmol/L (22.0-30.0); Chloride 104 mmol/L (98-107); Estimated Glomerular Filt Rate 27 ml/min (>60); GFR (African American) 33 ML/MIN (>60); Glucose 112 mg/dl (74-100); Phosphorous 3.1 mg/dl (2.5-4.5); Potassium 4.7 mmoL/L (3.5-5.1); Sodium 136 mmol/L (136-145)
[2024-12-10 09:42] LABS: Bacteria,Urine Trace /lpf; Squamous Epithelial Cell,Urine Occasional #/hpf (0-5)
[2024-12-10 09:53] LABS: Intact Parathyroid Hormone 102.2 pg/mL (7.5-53.5)
[2024-12-10 09:57] LABS: 25-OH Vitamin D, Total 35.1 ng/mL (30-100)
== END 2024-12-10 23:59 | disposition home or self-care (01) ==
LOC: LAB 08:37
PROVIDERS: PCP Family Medicine; Visit Provider Nurse Practitioner
DX: N18.32 Chronic kidney disease, stage 3b (principal)
CPT/HCPCS: 36415; 80069; 81001; 82306; 82570; 83970; 84156; 85027